=== PATIENT | male | born 1950 | race Caucasian/White ===

== ENCOUNTER 2016-05-07 09:08 | Inpatient (IN) | payer OTHER ==
[2016-05-07 09:31] VITALS: BMI 21.2
[2016-05-07] MEDS ORDERED: OXYCODONE/APAP 5/325MG COMBO TABLET PO ONE (12:07)
[2016-05-07] MEDS ORDERED: OXYCODONE/APAP 5/325MG COMBO TABLET ONE (12:15)
--- NOTE | 2016-05-07 12:17 | PDOC ---
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 Patient reports weakness in both of his lower extremities and back pain localized to the mid lower back radiating to his lower extremities. He reports radiation of pain to his lower extremities. Patient notes that he has bilateral nerve damage in his lower extremities and has difficulty walking up the stairs. Patient states that he has had 15 recent falls because he cannot walk up 19 stairs to his house and is sleeping outside and states I cant go back because I will out there. He also reports neck pain that was 1 month ago. Patient notes that he has been to multiple hospitals [facility] with similar complaints. He notes that he was in [place] for rehab in 01/2016 for rehab because of difficulty walking and states that he was discharged after full recovery after 1 month. He denies fever, chills, nausea, vomiting, diarrhea, headache, abdominal pain, hematochezia, urinary frequency, hesitancy, dysuria, or hematuria. <Jasmin Arndt - Last Filed: 05/07/16 15:08> - General Chief Complaint: Pain Stated Complaint: LEGS PAIN Time Seen by Provider: 05/07/16 11:29 Past History - Past Medical History COPD: Yes HTN: Yes - Psycho/Social/Smoking Cessation Hx Suicidal Ideation: No Smoking History: Current every day smoker Have you smoked in the past 12 months: Yes Number of Cigarettes Smoked Daily: 10 Information on smoking cessation initiated: No <Brent Simon - Last Filed: 05/07/16 14:57> <Jasmin Arndt - Last Filed: 05/07/16 15:08> - Past Medical History Allergies/Adverse Reactions: Allergies Allergy/AdvReac Type Severity Reaction Status Date / Time Penicillins Allergy Rash Verified 05/07/16 09:26 Home Medications: Ambulatory Orders NK [No Known Home Medication] 05/07/16 Review of Systems - Review of Systems Able to Perform ROS?: Yes Comments:: 05/07/16 15:07 CONSTITUTIONAL: Reported: Generalized Weakness. Not reported: Fever, Chills, Diaphoresis, Malaise, Loss of Appetite HEENT: No reported: Rhinorrhea, Nasal Congestion, Throat Pain, Throat Swelling, Difficulty Swallowing, Mouth Swelling, Ear Pain, Eye Pain, Visual Changes CARDIOVASCULAR: No reported: Chest Pain, Syncope, Palpitations, Irregular Heart Rate, Lightheadedness, Peripheral Edema RESPIRATORY: No reported: Cough, Shortness of Breath, SOB with Exertion, Orthopnea, Wheezing , Stridor, Hemoptysis GASTROINTESTINAL: No reported: Abdominal pain, Abdominal Distension, Nausea, Vomiting, Diarrhea, Constipation, Melena, Hematochezia GENITOURINARY: Reported: dysuria No reported:Frequency, Urgency, Hesitancy, Flank Pain, Genital Pain MUSCULOSKELETAL: Reported: back pain, lower extremity weakness. No reported: Myalgia, Arthralgia, Joint Swelling, Neck Pain SKIN: No reported: Rash, Itching, Pallor HEMEATOLOGIC/IMMUNOLOGIC: No reported: Easy Bleeding, Easy Bruising, Lymphadenopathy, Frequent infections ENDOCRINE: No reported: Unexplained Weight Gain, Unexplained Weight Loss, Heat Intolerance , Cold Intolerance NEUROLOGIC: No reported: Headache, Focal Weakness, Paresthesias, Vertigo, Lightheadedness, Unsteady Gait, Seizure, Mental Status Changes, Incontinence PSYCHIATRIC: No reported: Anxiety, Depression <Jasmin Arndt - Last Filed: 05/07/16 15:08> *Physical Exam - Vital Signs Last Vital Signs Temp Pulse Resp BP Pulse Ox 98.6 F 91 H 19 158/94 97 05/07/16 09:26 05/07/16 09:26 05/07/16 09:26 05/07/16 09:26 05/07/16 09:26 <Brent Simon - Last Filed: 05/07/16 14:57> - Vital Signs Last Vital Signs Temp Pulse Resp BP Pulse Ox 98.6 F 91 H 19 158/94 99 05/07/16 09:26 05/07/16 09:26 05/07/16 09:26 05/07/16 09:26 05/07/16 11:30 - Physical Exam Comments: 05/07/16 15:07 GENERAL: The patient is awake, alert, and fully oriented, Nontoxic - in no acute distress. HEAD: Normocephalic, atraumatic. EYES: extraocular movements intact, sclera anicteric, conjunctiva clear. ENT: Normal voice, Moist mucous membranes. NECK: Normal range of motion, supple LUNGS: Breath sounds equal, clear to auscultation bilaterally. No wheezes, no rhonchi, no rales. HEART: Regular rate and rhythm, without murmur, rub or gallop. ABDOMEN: Soft, nontender, normoactive bowel sounds. No guarding, no rebound.No CVA tenderness EXTREMITIES: Normal range of motion, no edema. No clubbing or cyanosis. No cords , erythema, or tenderness. NEUROLOGICAL: No facial assymetry, Normal speech, 5-/5 in LLE, foot drop in L foot, BACK: mild tenderness to lumbar spine ~L5/6, no focal tenderness in cervical/ thoracic spine PSYCH: Normal mood, normal affect. SKIN: Warm, Dry, normal turgor <Jasmin Arndt - Last Filed: 05/07/16 15:08> ED Treatment Course - LABORATORY CBC & Chemistry Diagram: 05/07/16 12:10 05/07/16 12:10 - RADIOLOGY Radiology Studies Ordered: Category Date Time Status CERVICAL SPINE CT W/O CONTR [CT] Stat CT Scan 05/07/16 12:[address] W/O CONTRAST [CT] Stat CT Scan 05/07/16 12:06 Ordered <Brent Simon - Last Filed: 05/07/16 14:57> - LABORATORY CBC & Chemistry Diagram: 05/07/16 12:10 05/07/16 12:10 - ADDITIONAL ORDERS Additional order review: Laboratory Results 05/07/16 05/07/16 12:10 12:10 INR 1.08 Sodium 142 Potassium 3.6 Chloride 107 Carbon Dioxide 25 Anion Gap 10 BUN 18 Creatinine 0.7 Creat Clearance w eGFR > 60 Random Glucose 125 H Calcium 9.2 Total Bilirubin 0.3 AST 23 ALT 18 Alkaline Phosphatase 93 Total Protein 7.4 Albumin 3.9 05/07/16 12:10 RBC 4.84 MCV 88.8 MCHC 33.2 RDW 14.2 MPV 7.3 L Neutrophils % 59.9 Lymphocytes % 30.3 Monocytes % 6.1 Eosinophils % 2.7 Basophils % 1.0 - Medications Given in the ED: ED Medications Discontinued Medications Generic Name Dose Route Start Last Admin Trade Name Freq PRN Reason Stop Dose Admin Oxycodone/Acetaminophen 2 combo 05/07/16 12:07 05/07/16 12:23 Percocet 5/325 - PO 05/07/16 12:08 2 combo ONCE ONE Administration <Jasmin Arndt - Last Filed: 05/07/16 15:08> Medical Decision Making - Medical Decision Making 05/07/16 12:08 66y M hx of htn, chronic back pain with 'nerve damage', copd, presents with back pain with radiationg down b/l legs, worsening weakness of LLE, radiation to R leg is new. The pt states he has unsteady gait is difficult to walk around due to his pain. The patient states that had a recent hospitalization at [place], where he was admitted for rehab, and he left feeling beter and walking around. He was last in [facility] last week and was discharged after 3 day hosptial stay, but since being at home, states he has been unable to get up to his apartment which requires a 19 step walk due to his back pain. Pt was seen falling when trying to ambulate in [facility] will ck ct neck and cspine to see if there is any acute pathology. will also consult social work 05/07/16 13:[address] neck and lspine negative for acute disease labs unremarkable will consult SW 05/07/16 14:[address] neck/lspine shows no nerve impingment dscussed with Lakshmi from - would recommend PT evaluation tomorrow may need CINTIA placement will place in observation status to hospitalist A portion of this note was documented by scribe services under my direction. I have reviewed the details of the note, within reason, and agree with the documentation with the following case summary and management plan written by me 05/07/16 14:57 case dw [employer] Azul accepted for med surg observatio for pain mangaement and PT evaluation. stable for med surg Case discussed in detail with admitting physician including history, physical exam and ancillary studies. Admitting physician has assumed care for the patient, will follow all pending diagnostics and will complete the evaluation and treatment. <Brent Simon - Last Filed: 05/07/16 14:57> *DC/Admit/Observation/Transfer - Discharge Dispostion Admit: Yes <Brent Simon - Last Filed: 05/07/16 14:57> - Attestations Scribe Attestion: 05/07/16 15:07 Documentation prepared by MICHA Blandon, acting as medical device sales representative for Brent Simon MD. <Jasmin Arndt - Last Filed: 05/07/16 15:08> Diagnosis at time of Disposition: Back pain Qualifiers: Back pain location: low back pain Chronicity: chronic Back pain laterality: bilateral Sciatica presence: with sciatica Sciatica laterality: bilateral sciatica Qualified Code(s): M54.42 - Lumbago with sciatica, left side
[2016-05-07 12:24] LABS: EOSINOPHIL 2.7 % (0-4.5); MCH 29.5 pg (25.7-33.7); MCHC 33.2 g/dl (32.0-35.9); MEAN CELL VOLUME 88.8 fl (80-96); MEAN PLT VOLUME 7.3 fl (7.5-11.1); NEUTROPHILS 59.9 % (42.8-82.8); PLATELET COUNT 227 K/MM3 (134-434); RDW 14.2 % (11.9-15.9); WHITE BLOOD COUNT 10.1 K/mm3 (4.0-10.0)
[2016-05-07 12:41] LABS: INR 1.08 (0.82-1.09); PROTHROMBIN TIME (PATIENT) 11.9 SEC (9.98-11.88)
[2016-05-07 12:49] LABS: ALBUMIN 3.9 g/dl (3.4-5.0); ALK PHOS 93 U/L (45-117); ANION GAP 10 (8-16); BILIRUBIN,TOTAL 0.3 mg/dL (0.2-1.0); CALCIUM 9.2 mg/dL (8.5-10.1); CO2 25 mmol/L (21-32); CREATININE 0.7 mg/dL (0.7-1.3); GLUCOSE,RANDOM 125 mg/dL (74-106); SGPT/ALT 18 U/L (12-78); TOT PROT 7.4 g/dl (6.4-8.2)
[2016-05-07 12:51] LABS: SGOT/AST 23 U/L (15-37)
--- NOTE | 2016-05-07 16:12 | HP ---
CHIEF COMPLAINT: back pain PCP: none HISTORY OF PRESENT ILLNESS: 66 year old male with a PMHx of chronic back pain, Hx of ETOH abuse (gathered from previous record), htn, presents to the emergency room due to c/o sharp low back pain with tingling that radiates down both of his legs. Patient has a history of low back pain s/p lower lumbar surgery in the . He has been to multiple hospitals throughout the past month, wanting admission to get placement into an assisted living facility. He claims that his pain has gotten progressively worse. Initially pain only radiated down right leg, now down the left leg. He is now unsteady and has been falling. He is unable to climb 19 steps going into his apartment. Claims he is unable to lift his right foot. Patient denies fever, chills, n, v Patient denies chest pain, sob, palpitations Patient denies recent trauma from falls ER course was notable for: (1)cbc, cmp unremarkable except for white count of 10.1 (2)neck CT and C spine were negative for acute pathology (3)aids social worker consulted, [place] Recent Travel: no PAST MEDICAL HISTORY: HTN, chronic low back pain, possible substance abuse in the past PAST SURGICAL HISTORY: lumbar fusion surgery Social History: Smoking: current tobacco smoker 10 cigarettes per day Alcohol:no Drugs: no Family History:n/a Allergies Penicillins Allergy (Verified 05/07/16 09:26) Rash HOME MEDICATIONS: Home Medications Medication Instructions Recorded NK [No Known Home Medication] 05/07/16 REVIEW OF SYSTEMS CONSTITUTIONAL: Absent: fever, chills, diaphoresis, generalized weakness, malaise, loss of appetite, weight change HEENT: Absent: rhinorrhea, nasal congestion, throat pain, throat swelling, difficulty swallowing, mouth swelling, ear pain, eye pain, visual changes CARDIOVASCULAR: Absent: chest pain, syncope, palpitations, irregular heart rate, lightheadedness , peripheral edema RESPIRATORY: Absent: cough, shortness of breath, dyspnea with exertion, orthopnea, wheezing, stridor, hemoptysis GASTROINTESTINAL: Absent: abdominal pain, abdominal distension, nausea, vomiting, diarrhea, constipation, melena, hematochezia GENITOURINARY: Absent: dysuria, frequency, urgency, hesitancy, hematuria, flank pain, genital pain MUSCULOSKELETAL: Positive: low back pain, Absent: myalgia, arthralgia, joint swelling, neck pain SKIN: Absent: rash, itching, pallor HEMATOLOGIC/IMMUNOLOGIC: Absent: easy bleeding, easy bruising, lymphadenopathy, frequent infections ENDOCRINE: Absent: unexplained weight gain, unexplained weight loss, heat intolerance, cold intolerance NEUROLOGIC: Positive: focal weakness or paresthesias, unsteady gait, Absent: headache, , dizziness, , seizure, mental status changes, bladder or bowel incontinence PSYCHIATRIC: Absent: anxiety, depression, suicidal or homicidal ideation, hallucinations. PHYSICAL EXAMINATION Vital Signs - 24 hr 05/07/16 05/07/16 09:26 11:30 Temperature 98.6 F Pulse Rate 91 H Respiratory 19 Rate Blood Pressure 158/94 O2 Sat by Pulse 97 99 Oximetry (%) GENERAL: Not well kept, Awake, alert, and fully oriented, in no acute distress. HEAD: Normal with no signs of trauma. EYES: Pupils equal, round and reactive to light, extraocular movements intact, sclera anicteric, conjunctiva clear. No lid lag. EARS, NOSE, THROAT: Ears normal, nares patent, oropharynx clear without exudates. Moist mucous membranes. NECK: Normal range of motion, supple without lymphadenopathy, JVD, or masses. LUNGS: Breath sounds equal, clear to auscultation bilaterally. No wheezes, and no crackles. No accessory muscle use. HEART: Regular rate and rhythm, normal S1 and S2 without murmur, rub or gallop. ABDOMEN: Soft, nontender, not distended, normoactive bowel sounds, no guarding, no rebound, no masses. No hepatomegaly or splenomegaly. MUSCULOSKELETAL: No bony deformities, lumbar spine tenderness. No CVA tenderness. UPPER EXTREMITIES: 2+ pulses, warm, well-perfused. No cyanosis. No clubbing. Cap refill <2 seconds. No peripheral edema. LOWER EXTREMITIES: ROM limited,right leg unable to lift; 2+ pulses, warm, well- perfused. No calf tenderness. No peripheral edema. NEUROLOGICAL: normal speech, facial symmetry, strength of right leg 3/5; only able to wiggle toes; l foot drop PSYCHIATRIC: Cooperative. Good eye contact. Appropriate mood and affect. SKIN: Warm, dry, normal turgor, no rashes or lesions noted. Laboratory Results - last 24 hr 05/07/16 05/07/16 05/07/16 12:10 12:10 12:10 WBC 10.1 H RBC 4.84 Hgb 14.3 Hct 43.0 MCV 88.8 MCHC 33.2 RDW 14.2 Plt Count 227 MPV 7.3 L Neutrophils % 59.9 Lymphocytes % 30.3 Monocytes % 6.1 Eosinophils % 2.7 Basophils % 1.0 INR 1.08 Sodium 142 Potassium 3.6 Chloride 107 Carbon Dioxide 25 Anion Gap 10 BUN 18 Creatinine 0.7 Creat Clearance w eGFR > 60 Random Glucose 125 H Calcium 9.2 Total Bilirubin 0.3 AST 23 ALT 18 Alkaline Phosphatase 93 Total Protein 7.4 Albumin 3.9 ASSESSMENT/PLAN: 66 yo male with PMHx of chronic back pain, presents to ER with worsening back pain with radiation down b/l legs, unsteady gait. Increase falls. Admitted to observation. Issue is safe discharge, patient may need rehab due to frequency of falls. 1. Low back pain -imaging with CT cervical and lumbar spine are negative for acute fracture or pathology, no nerve impingement. -pain control with percocet q4h prn -uncertain if patient may have had abuse problem in past; old records were positive for opiates and benzo in urine tox (>ten yrs ago ) 2. Unable to ambulate -Physical therapy assessment -aids social worker consulted; -questionable need for rehab placement 3. Leukocytosis: -NO signs of acute infection -could be elevated due to stress from pain -UA negative, no fever, chills, cough, diarrhea 4. Hypertension: -not on any medication at home -low na diet -monitor FEN: Fluids: oral Electrolyte:wnl Diet: low sodium VTE prophylaxis: scds b/l Disposition: await physical therapy recommendations Problem List - Problem (1) Back pain Code(s): M54.9 - DORSALGIA, UNSPECIFIED Qualifiers: Back pain location: low back pain Chronicity: chronic Back pain laterality: bilateral Sciatica presence: with sciatica Sciatica laterality: bilateral sciatica Qualified Code(s): M54.42 - Lumbago with sciatica, left side (2) Unsteady gait Code(s): R26.81 - UNSTEADINESS ON FEET (3) Hypertension Code(s): I10 - ESSENTIAL (PRIMARY) HYPERTENSION (4) Leukocytosis, unspecified Code(s): D72.829 - ELEVATED WHITE BLOOD CELL COUNT, UNSPECIFIED Visit type - Emergency Visit Emergency Visit: Yes Care time: The patient presented to the Emergency Department on the above date and was hospitalized for further evaluation of their emergent condition. - New Patient This patient is new to me today: Yes Date on this admission: 05/07/16 - Critical Care Critical Care patient: No
[2016-05-07] MEDS ORDERED: OXYCODONE/APAP 5/325MG COMBO TABLET PO PRN (16:38)
[2016-05-07] MEDS ORDERED: ACETAMINOPHEN 325 MG TABLET (FP) PO PRN (16:42)
--- NOTE | 2016-05-07 17:04 | PN ---
Teaching Attending Note Name of Resident: Ivana Charlton ATTENDING PHYSICIAN STATEMENT I saw and evaluated the patient. I reviewed the resident's note and discussed the case with the resident. I agree with the resident's findings and plan as documented. SUBJECTIVE:c/o low back pain for several months. pain has continued to worsen to the point that pt is unable to ambulate due to the pain. he has been at multiple hospitals due to the same complaints but is discharged after a day with a few days of percocet which he takes until it runs out and then goes to another hospital. states he has some nerve pain in his feet for several years. also has [facility] and back fusion "many years ago" after falling off a dumpster. denies CP, SOB,fever, chills, N/V/C/D, bladder/bowel incontinence. denies drug use OBJECTIVE: Last Vital Signs Temp Pulse Resp BP Pulse Ox 98.6 F 62 16 122/60 98 05/07/16 16:33 05/07/16 16:33 05/07/16 16:33 05/07/16 16:33 05/07/16 16:33 General NAD, thin, older than stated age, disheveled CV S1 S2 RRR no murmur/rub/gallop Extremities no bone point or muscular tenderness, strength LLE 1/5 RLE 2/5 B/L UE 5/5. only able to lift the RLE 5 degrees with passive motion LLE 15degrees. pulses intact B/L ASSESSMENT AND PLAN: 66yo M with PMH HTN and chronic back pain presented to the ER and was admitted for further evaluation of their emergent condition 1. Intractable back pain- medicine observation. will admit for PT assessment which we can not due do today as we dont have PT services. will cont percocet prn pain. PT assessment tomorrow. decision will be made tomorrow regarding what pt is capable of doing with PT. will consider ortho assessment as outpatient 2. HTN- controlled here off medications 3. leukocytosis-likely reactive due to pain. no signs of infection will hold off abx at this time 4. DVT ppx- EAM
[2016-05-07] MEDS ORDERED: oxyCODONE HCL 5 MG TABLET ONE (17:57)
[2016-05-07] MEDS: oxyCODONE HCL 5 MG TABLET PO PRN ×2 (18:01→23:18)
[2016-05-07] MEDS ORDERED: HEPARIN NA (PORCINE) 5,000 UNITS/ML 1ML VIAL SQ SCH (22:00)
[2016-05-07] MEDS: ACETAMINOPHEN 325 MG TABLET (FP) PO PRN (23:22)
[2016-05-08] MEDS: oxyCODONE HCL 5 MG TABLET PO PRN ×5 (03:59→23:04)
[2016-05-08] MEDS: ACETAMINOPHEN 325 MG TABLET (FP) PO PRN ×4 (04:04→16:57)
[2016-05-08 07:56] LABS: BASOPHIL 1.2 % (0-2.0); EOSINOPHIL 5.2 % (0-4.5); MCH 29.5 pg (25.7-33.7); MCHC 33.3 g/dl (32.0-35.9); MEAN CELL VOLUME 88.6 fl (80-96); MEAN PLT VOLUME 7.6 fl (7.5-11.1); NEUTROPHILS 40.3 % (42.8-82.8); PLATELET COUNT 218 K/MM3 (134-434); RDW 13.9 % (11.9-15.9); WHITE BLOOD COUNT 6.4 K/mm3 (4.0-10.0)
[2016-05-08 08:14] LABS: CALCIUM 9.5 mg/dL (8.5-10.1); CREATININE 0.6 mg/dL (0.7-1.3)
[2016-05-08] MEDS: POLYETHYLENE GLYCOL 3350 119 GM BTL PO SCH (11:32)
--- NOTE | 2016-05-08 14:40 | PN ---
Teaching Attending Note Name of Resident: Ivana Charlton ATTENDING PHYSICIAN STATEMENT I saw and evaluated the patient. I reviewed the resident's note and discussed the case with the resident. I agree with the resident's findings and plan as documented. SUBJECTIVE:continues to have significant pain, some alleviation with pain medications but unable to move or participate with PT due to pain. states his pain is mostly in the hips when he attempts to stand. denies Cp, SOb,fever, chills, N/V/C/D OBJECTIVE: Last Vital Signs Temp Pulse Resp BP Pulse Ox 98.5 F 59 L 18 113/52 96 05/08/16 05:00 05/08/16 05:00 05/08/16 05:00 05/08/16 05:00 05/08/16 05:00 General NAD, thin, older than stated age CV S1 S2 RRR no murmur/rub/gallop Extremities strength 2/5 B/L LE, ASSESSMENT AND PLAN: 66yo M with PMH HTN and chronic back pain presented to the ER and was admitted for further evaluation of their emergent condition 1. Intractable back pain- obtain XR of the hips. obtain medical records from other facilities. minimal improvement with pain regimen and unable to even stand at this time. will switch to morphine 2mg Q4H and continue with PT assessment. will consider ortho assessment as outpatient. miralax to prevent constipation 2. HTN- controlled here off medications, no need for meds at this time 3. leukocytosis-likely reactive due to pain. resolved. no signs of infection 4. DVT ppx- EAM 5. will possible require CINTIA
[2016-05-08] MEDS ORDERED: morphine CARPU-JECT 2 MG/1 ML DISP.SYRIN IVPUSH PRN (14:53)
--- NOTE | 2016-05-08 15:07 | PN ---
<Ivana Charlton - Last Filed: 05/08/16 14:59> Physical Exam: SUBJECTIVE: Patient seen and examined pain is relatively controlled with percocet while at rest. Persistent difficulty with weight bearing or any movement. Physical therapy evaluated patient, unable to stand. Patient denies fever, chills, n,v, chest pain, sob, abdominal pain, leg swelling. OBJECTIVE: Vital Signs Period Temp Pulse Resp BP Sys/Davis Pulse Ox Last 24 Hr 98.0 F-98.5 F 59-64 16-18 113-132/50-68 95-100 GENERAL: The patient is unkept, awake, alert, and fully oriented, in no acute distress. HEAD: Normal with no signs of trauma. EYES: PERRL, extraocular movements intact, sclera anicteric, conjunctiva clear. No ptosis. ENT: Ears normal, nares patent, oropharynx clear without exudates, moist mucous membranes. NECK: Trachea midline, full range of motion, supple. LUNGS: Breath sounds equal, scattered wheezes, no crackles, no accessory muscle use. HEART: Regular rate and rhythm, S1, S2 without murmur, rub or gallop. ABDOMEN: Soft, nontender, nondistended, normoactive bowel sounds, no guarding, no rebound, no hepatosplenomegaly, no masses. EXTREMITIES: 2+ pulses, warm, well-perfused, no edema.Very limited ROM b/l LE; cannot raise above 15 degrees; 2/5 strength b/l feet NEUROLOGICAL: Cranial nerves II through XII grossly intact. Normal speech, gait not observed. PSYCH: Normal mood, normal affect. SKIN: Warm, dry, normal turgor, no rashes or lesions noted CBC, BMP 05/08/16 06:15 05/08/16 06:15 Active Medications Generic Name Dose Route Start Last Admin Trade Name Freq PRN Reason Stop Dose Admin Acetaminophen 650 mg 05/07/16 15:51 05/08/16 12:48 Tylenol - PO 650 mg Q4H PRN Administration FEVER OR PAIN Heparin Sodium (Porcine) 5,000 unit 05/08/16 18:00 Heparin - SQ Q8H-IV DARRIAN Morphine Sulfate 2 mg 05/08/16 14:53 Morphine Injection - IVPUSH Q4H PRN PAIN Polyethylene Glycol 17 gm 05/08/16 10:00 05/08/16 11:32 Miralax (For Daily Use) - PO 17 gm DAILY DARRIAN Administration ASSESSMENT/PLAN: 66 yo male with PMHx of chronic back pain, presents to ER with worsening back pain with radiation down b/l legs, unsteady gait. Increase falls. Admitted to hospital for intractable pain. Patient may need rehab due to frequency of falls , evaluated by PT, unable to stand. 1. Low back pain -imaging with CT cervical and lumbar spine are negative for acute fracture or pathology, no nerve impingement. -pain control increased to morphine 2mg q4h prn 2. Unable to ambulate -Physical therapy assessment; patient unable to stand -social work nurse consulted; -b/l hip and pelvic x rays ordered today; pain in hips reproduced greatly with leg lifting 3. Leukocytosis: improved -NO signs of acute infection; most likey secondary to stress/pain -UA negative, no fever, chills, cough, diarrhea 4. Hypertension: stable -not on any medication at home -low na diet -monitor FEN: Fluids: oral Electrolyte:wnl Diet: low sodium VTE prophylaxis: heparin sq Disposition: continue physical therapy evaluation; change to inpatient ; control pain Problem List - Problems (1) Back pain Code(s): M54.9 - DORSALGIA, UNSPECIFIED Qualifiers: Back pain location: low back pain Chronicity: chronic Back pain laterality: bilateral Sciatica presence: with sciatica Sciatica laterality: bilateral sciatica Qualified Code(s): M54.42 - Lumbago with sciatica, left side (2) Unsteady gait Code(s): R26.81 - UNSTEADINESS ON FEET (3) Hypertension Code(s): I10 - ESSENTIAL (PRIMARY) HYPERTENSION (4) Leukocytosis, unspecified Code(s): D72.829 - ELEVATED WHITE BLOOD CELL COUNT, UNSPECIFIED Visit type - Emergency Visit Emergency Visit: Yes ED Registration Date: 05/07/16 Care time: The patient presented to the Emergency Department on the above date and was hospitalized for further evaluation of their emergent condition. - New Patient This patient is new to me today: Yes Date on this admission: 05/08/16 - Critical Care Critical Care patient: No - Discharge Referral Referred to [facility] No <Bj Abrams - Last Filed: 05/10/16 12:23> Physical Exam: ATTENDING PHYSICIAN STATEMENT I saw and evaluated the patient. I reviewed the resident's note and discussed the case with the resident. I agree with the resident's findings and plan as documented. SUBJECTIVE: seen and evaluated at the bedside OBJECTIVE: lower back tenderness; weakness of B/L lower extremities due to back pain ASSESSMENT AND PLAN: 66 year old male with a PMHx of chronic back pain, Hx of ETOH abuse (gathered from previous record), htn admitted for severe lower back pain Lower Back pain lower back tenderness; weakness of B/L lower extremities due to back pain -CT scan shows chronic L5 compression fracture -follow up with physical therapy to see if pt requires subacute rehab
[2016-05-08] MEDS: HEPARIN NA (PORCINE) 5,000 UNITS/ML 1ML VIAL SQ SCH (21:39)
[2016-05-09] MEDS: oxyCODONE HCL 5 MG TABLET PO PRN ×6 (03:17→23:31)
[2016-05-09] MEDS: HEPARIN NA (PORCINE) 5,000 UNITS/ML 1ML VIAL SQ SCH ×3 (05:58→21:54)
[2016-05-09 07:43] LABS: EOSINOPHIL 4.2 % (0-4.5); MCH 29.3 pg (25.7-33.7); MCHC 33.4 g/dl (32.0-35.9); MEAN CELL VOLUME 87.6 fl (80-96); MEAN PLT VOLUME 7.6 fl (7.5-11.1); NEUTROPHILS 54.7 % (42.8-82.8); PLATELET COUNT 221 K/MM3 (134-434); RDW 14.2 % (11.9-15.9); WHITE BLOOD COUNT 7.9 K/mm3 (4.0-10.0)
[2016-05-09 08:35] LABS: ALBUMIN 3.8 g/dl (3.4-5.0); ANION GAP 10 (8-16); BILIRUBIN,TOTAL 0.5 mg/dL (0.2-1.0); CALCIUM 9.3 mg/dL (8.5-10.1); CO2 28 mmol/L (21-32); CREATININE 0.6 mg/dL (0.7-1.3); GLUCOSE,RANDOM 81 mg/dL (74-106); SGOT/AST 14 U/L (15-37); SGPT/ALT 19 U/L (12-78); TOT PROT 7.1 g/dl (6.4-8.2)
[2016-05-09 08:36] LABS: ALK PHOS 88 U/L (45-117)
[2016-05-09] MEDS: POLYETHYLENE GLYCOL 3350 119 GM BTL PO SCH (09:32)
--- NOTE | 2016-05-09 11:22 | PN ---
<Ivana Charlton - Last Filed: 05/09/16 11:40> Physical Exam: SUBJECTIVE: Patient seen and examined. Admits to better pain control today. Morphine was added to his pain regimen OBJECTIVE: Vital Signs Period Temp Pulse Resp BP Sys/Davis Pulse Ox Last 24 Hr 98.2 F-99 F 57-72 16-18 106-138/53-72 95-95 GENERAL: The patient is unkept,awake, alert, and fully oriented, in no acute distress. HEAD: Normal with no signs of trauma. EYES: PERRL, extraocular movements intact, sclera anicteric, conjunctiva clear. No ptosis. ENT: Ears normal, nares patent, oropharynx clear without exudates, moist mucous membranes. NECK: Trachea midline, full range of motion, supple. LUNGS: Breath sounds equal, scattered expiratory wheezes, no crackles, no accessory muscle use. HEART: Regular rate and rhythm, S1, S2 mild systolic murmur, rub or gallop. ABDOMEN: Soft, nontender, nondistended, normoactive bowel sounds, no guarding, no rebound, no hepatosplenomegaly, no masses. EXTREMITIES: 2+ pulses, warm, well-perfused, no edema. Decreased ROM b/l LE; 2/ 5 strength b/l LE; sensation intact NEUROLOGICAL: Cranial nerves II through XII grossly intact. Normal speech, gait not observed. PSYCH: Normal mood, normal affect. SKIN: Warm, dry, normal turgor, no rashes or lesions noted CBC, BMP 05/09/16 07:05 05/09/16 07:05 Active Medications Generic Name Dose Route Start Last Admin Trade Name Eleuterioq PRN Reason Stop Dose Admin Acetaminophen 650 mg 05/07/16 15:51 05/08/16 16:57 Tylenol - PO 650 mg Q4H PRN Administration FEVER OR PAIN Heparin Sodium (Porcine) 5,000 unit 05/08/16 22:00 05/09/16 05:58 Heparin - SQ Not Given TID D[facility]AN Morphine Sulfate 2 mg 05/08/16 14:53 05/08/16 15:54 Morphine Injection - IVPUSH 2 mg Q4H PRN Administration PAIN Oxycodone HCl 10 mg 05/08/16 18:54 05/09/16 11:19 Roxicodone - PO 10 mg Q4H PRN Administration Polyethylene Glycol 17 gm 05/08/16 10:00 05/09/16 09:32 Miralax (For Daily Use) - PO Not Given DAILY [facility] ASSESSMENT/PLAN: 66 yo male with PMHx of chronic back pain, presents to ER with worsening back pain with radiation down b/l legs, unsteady gait. Increase falls. Admitted to hospital for intractable pain. Patient may need rehab due to frequency of falls , evaluated by PT, unable to stand. 1. Low back pain/Unable to ambulate -imaging with CT cervical and lumbar spine are negative for acute fracture or pathology, no nerve impingement. -pain control increased to morphine 2mg q4h prn and oxycodonone 10mg po a4h prn -pain has greatly improved with pain medication, able to get OOB to chair. -b/l hip and pelvic x rays negative for bony abnormalities, no evidence of hip dislocation, no trabecular pattern, femoral head intact -Pending PT evaluation today. -Patient may need rehab 2. Leukocytosis: resolved -NO signs of acute infection; most likey secondary to stress/pain -UA negative, no fever, chills, cough, diarrhea 4. Hypertension: stable -not on any medication at home -low na diet -monitor FEN: Fluids: oral Electrolyte:wnl Diet: low sodium VTE prophylaxis: heparin sq Disposition: continue physical therapy evaluation; change to inpatient ; control pain Problem List - Problems (1) Back pain Code(s): M54.9 - DORSALGIA, UNSPECIFIED Qualifiers: Back pain location: low back pain Chronicity: chronic Back pain laterality: bilateral Sciatica presence: with sciatica Sciatica laterality: bilateral sciatica Qualified Code(s): M54.42 - Lumbago with sciatica, left side (2) Unsteady gait Code(s): R26.81 - UNSTEADINESS ON FEET (3) Hypertension Code(s): I10 - ESSENTIAL (PRIMARY) HYPERTENSION (4) Leukocytosis, unspecified Code(s): D72.829 - ELEVATED WHITE BLOOD CELL COUNT, UNSPECIFIED Visit type - Emergency Visit Emergency Visit: Yes ED Registration Date: 05/08/16 Care time: The patient presented to the Emergency Department on the above date and was hospitalized for further evaluation of their emergent condition. - New Patient This patient is new to me today: No - Critical Care Critical Care patient: No - Discharge Referral Referred to [facility] Med P.C.: No <Bj Abrams - Last Filed: 05/10/16 12:24> Physical Exam: ATTENDING PHYSICIAN STATEMENT I saw and evaluated the patient. I reviewed the resident's note and discussed the case with the resident. I agree with the resident's findings and plan as documented. SUBJECTIVE: seen and evaluated at the bedside OBJECTIVE: lower back tenderness; weakness of B/L lower extremities due to back pain ASSESSMENT AND PLAN: 66 year old male with a PMHx of chronic back pain, Hx of ETOH abuse (gathered from previous record), htn admitted for severe lower back pain Lower Back pain lower back tenderness; weakness of B/L lower extremities due to back pain -CT scan shows chronic L5 compression fracture -has no more coverage for short term rehab remaining -physical therapy BID until pt is able to go home with VNS -follow up pain management consult
[2016-05-10] MEDS: oxyCODONE HCL 5 MG TABLET PO PRN ×6 (03:34→23:59)
[2016-05-10] MEDS: HEPARIN NA (PORCINE) 5,000 UNITS/ML 1ML VIAL SQ SCH ×3 (06:29→21:48)
[2016-05-10 07:29] LABS: BASOPHIL 0.9 % (0-2.0); EOSINOPHIL 4.7 % (0-4.5); MCH 29.3 pg (25.7-33.7); MCHC 33.4 g/dl (32.0-35.9); MEAN CELL VOLUME 87.8 fl (80-96); MEAN PLT VOLUME 7.3 fl (7.5-11.1); NEUTROPHILS 51.9 % (42.8-82.8); PLATELET COUNT 222 K/MM3 (134-434); RDW 13.9 % (11.9-15.9); WHITE BLOOD COUNT 7.8 K/mm3 (4.0-10.0)
[2016-05-10 08:37] LABS: ALBUMIN 3.9 g/dl (3.4-5.0); ANION GAP 9 (8-16); BILIRUBIN,TOTAL 0.4 mg/dL (0.2-1.0); CALCIUM 9.3 mg/dL (8.5-10.1); CO2 29 mmol/L (21-32); CREATININE 0.7 mg/dL (0.7-1.3); GLUCOSE,RANDOM 88 mg/dL (74-106); SGOT/AST 19 U/L (15-37); SGPT/ALT 21 U/L (12-78); TOT PROT 7.3 g/dl (6.4-8.2)
[2016-05-10 08:38] LABS: ALK PHOS 81 U/L (45-117)
[2016-05-10] MEDS: POLYETHYLENE GLYCOL 3350 119 GM BTL PO SCH (11:39)
--- NOTE | 2016-05-10 14:59 | PN ---
<Ivana Charlton - Last Filed: 05/10/16 15:01> Physical Exam: SUBJECTIVE: Patient seen and examined. Sitting up in bed today. Still complaining of pain but claims it is tolerable with medication. Nurse states that he walked to the bathroom with his walker. He is worried today about getting kicked out of apartment due to past due rent. Patient denies fever, chills, n, v, chest pain, sob, palpitations, abdominal pain. HE said that he has moved his bowels a little bit. He also has been refusing the mirolax. OBJECTIVE: Vital Signs Period Temp Pulse Resp BP Sys/Davis Pulse Ox Last 24 Hr 98.3 F-98.5 F 63-76 20-20 110-150/53-84 95-97 GENERAL: The patient is awake, alert, and fully oriented, in no acute distress. HEAD: Normal with no signs of trauma. EYES: PERRL, extraocular movements intact, sclera anicteric, conjunctiva clear. No ptosis. LUNGS: Breath sounds equal, clear to auscultation bilaterally, no wheezes, no crackles, no accessory muscle use. HEART: Regular rate and rhythm, S1, S2 without murmur today,. ABDOMEN: Soft, nontender, nondistended, normoactive bowel sounds, no guarding, no rebound, no hepatosplenomegaly, no masses. EXTREMITIES: 2+ pulses, warm, well-perfused, no edema. Pain with hip flexion and extension. strength 2/5 b/l LE NEUROLOGICAL: Cranial nerves II through XII grossly intact. Normal speech, gait not observed. PSYCH: Normal mood, normal affect. SKIN: Warm, dry, normal turgor, no rashes or lesions noted CBC, BMP 05/10/16 06:10 05/10/16 06:10 Active Medications Generic Name Dose Route Start Last Admin Trade Name Freq PRN Reason Stop Dose Admin Acetaminophen 650 mg 05/07/16 15:51 05/08/16 16:57 Tylenol - PO 650 mg Q4H PRN Administration FEVER OR PAIN Heparin Sodium (Porcine) 5,000 unit 05/08/16 22:00 05/10/16 13:47 Heparin - SQ Not Given TID DARRIAN Morphine Sulfate 2 mg 05/08/16 14:53 05/08/16 15:54 Morphine Injection - IVPUSH 2 mg Q4H PRN Administration PAIN Oxycodone HCl 10 mg 05/08/16 18:54 05/10/16 11:39 Roxicodone - PO 10 mg Q4H PRN Administration Polyethylene Glycol 17 gm 05/08/16 10:00 05/10/16 11:39 Miralax (For Daily Use) - PO Not Given DAILY [facility] IMAGING : -CT cervical and lumbar spine are negative for acute fracture or pathology, no nerve impingement -B/L hip and pelvic x rays negative for bony abnormalities, no evidence of hip dislocation, no trabecular pattern, femoral head intact ASSESSMENT/PLAN: 66 yo male with PMHx of chronic back pain, presents to ER with worsening back pain with radiation down b/l legs, unsteady gait. Increase falls. Admitted to hospital for intractable pain. Patient may need rehab due to frequency of falls , evaluated by PT, unable to stand. 1. Low back pain/Unable to ambulate: slightly improving asking for pain control around the clock -pain control increased yesterday to morphine 2mg q4h prn and oxycodonone 10mg po a4h prn -pain has greatly improved with pain medication, able to get OOB to chair -Pending PT evaluation . -rehab 2. Leukocytosis: resolved -NO signs of acute infection; most likey secondary to stress/pain -UA negative, no fever, chills, cough, diarrhea 4. Hypertension: stable -not on any medication at home -low na diet -monitor FEN: Fluids: oral Electrolyte:wnl Diet: low sodium VTE prophylaxis: heparin sq Disposition: continue physical therapy : case management specialist says he does not have any SNF days left; he will have to be d/c/d home or to a retirement Problem List - Problems (1) Back pain Code(s): M54.9 - DORSALGIA, UNSPECIFIED Qualifiers: Back pain location: low back pain Chronicity: chronic Back pain laterality: bilateral Sciatica presence: with sciatica Sciatica laterality: bilateral sciatica Qualified Code(s): M54.42 - Lumbago with sciatica, left side (2) Unsteady gait Code(s): R26.81 - UNSTEADINESS ON FEET (3) Hypertension Code(s): I10 - ESSENTIAL (PRIMARY) HYPERTENSION (4) Leukocytosis, unspecified Code(s): D72.829 - ELEVATED WHITE BLOOD CELL COUNT, UNSPECIFIED Visit type - Emergency Visit Emergency Visit: Yes ED Registration Date: 05/08/16 Care time: The patient presented to the Emergency Department on the above date and was hospitalized for further evaluation of their emergent condition. - New Patient This patient is new to me today: No - Critical Care Critical Care patient: No - Discharge Referral Referred to [facility] Med P.C.: No <Bj Abrams - Last Filed: 05/11/16 19:01> Physical Exam: ATTENDING PHYSICIAN STATEMENT I saw and evaluated the patient. I reviewed the resident's note and discussed the case with the resident. I agree with the resident's findings and plan as documented. SUBJECTIVE: seen and evaluated at the bedside OBJECTIVE: lower back tenderness; weakness of B/L lower extremities due to back pain ASSESSMENT AND PLAN: 66 year old male with a PMHx of chronic back pain, Hx of ETOH abuse (gathered from previous record), htn admitted for severe lower back pain Lower Back pain lower back tenderness; weakness of B/L lower extremities due to back pain -CT scan shows chronic L5 compression fracture -has no more coverage for short term rehab remaining -physical therapy BID until pt is able to go home with VNS -follow up pain management consult
[2016-05-11] MEDS: oxyCODONE HCL 5 MG TABLET PO PRN ×4 (03:34→15:22)
[2016-05-11] MEDS: HEPARIN NA (PORCINE) 5,000 UNITS/ML 1ML VIAL SQ SCH ×2 (06:38→13:06)
--- NOTE | 2016-05-11 07:22 | CONSULT ---
Consult Consult Specialty:: back pain and hip pain Referred by:: hospitalist Reason for Consultation:: back and hip pain and chornic opioids - History of Present Illness Chief Complaint: back pain History of Present Illness: 66 year old man with a history of chronic back and hip pain. He has been on chronic opioids- oxycodone "helps me a lot". Pain score 9/10. He reports he cannot go up stairs and he has 19steps at home. - Smoking History Smoking history: Current every day smoker Have you smoked in the past 12 months: Yes Aproximately how many cigarettes per day: 10 Home Medications - Allergies Allergies/Adverse Reactions: Allergies Allergy/AdvReac Type Severity Reaction Status Date / Time Penicillins Allergy Rash Verified 05/07/16 09:26 - Home Medications Home Medications: Ambulatory Orders NK [No Known Home Medication] 05/07/16 Physical Exam Vital Signs: Vital Signs Temperature 98.8 F 05/11/16 06:00 Pulse Rate 69 05/11/16 06:00 Respiratory Rate 18 05/11/16 06:00 Blood Pressure 134/66 05/11/16 06:00 O2 Sat by Pulse Oximetry (%) 97 05/10/16 22:00 Musculoskeletal: Yes: Back Pain Labs: CBC, BMP 05/10/16 06:10 05/10/16 06:10 Assessment/Plan Chronic opioid use Chronic hip and back pain 1. SInce patient states was told he needed a hip replacement, please consider ortho eval 2. Patient reports going to multiple hospitals for oxycodone. I could not check ISTOP today since the computer did not allow me to check. I will check later in my office. FOr now, its ok to continue but I would not recommend more than 2-3 pills of oxycodone as an outpatient. 3. Physical therapy/Rehab
[2016-05-11] MEDS: POLYETHYLENE GLYCOL 3350 119 GM BTL PO SCH (10:51)
--- NOTE | 2016-05-11 14:00 | CON.PSY ---
Psychiatry Consult Chief Complaint: AM TOO CHICKEN TO KILL MYSELF. i WANT TO GO TO [facility] FOR MY PAIN MEDS.i DONT NEED A PSYCHIATRIST, i DONT WANT TO TALK TO YOU. i AM NOT GOING TO KILL MY SELF. i WAS JUST KIDDING. Symptoms: reports: Irritability, Conduct Problems - Previous Psychiatric Treatment Outpatient: None Inpatient: None - Previous Substance Abuse Treatment Outpatient: None Inpatient: None - Current Medications Current Medications: Active Medications Acetaminophen (Tylenol -) 650 mg PO Q4H PRN PRN Reason: FEVER OR PAIN Last Admin: 05/08/16 16:57 Dose: 650 mg Heparin Sodium (Porcine) (Heparin -) 5,000 unit SQ TID [facility] Last Admin: 05/11/16 13:06 Dose: Not Given Morphine Sulfate (Morphine Injection -) 2 mg IVPUSH Q4H PRN PRN Reason: PAIN Last Admin: 05/08/16 15:54 Dose: 2 mg Oxycodone HCl (Roxicodone -) 10 mg PO Q4H PRN Last Admin: 05/11/16 11:15 Dose: 10 mg Polyethylene Glycol (Miralax (For Daily Use) -) 17 gm PO DAILY [facility] Last Admin: 05/11/16 10:51 Dose: Not Given - Allergies Allergies: Allergies Allergy/AdvReac Type Severity Reaction Status Date / Time Penicillins Allergy Rash Verified 05/07/16 09:26 - Current Living Status Usual Living Arrangement: Alone - Current Mental Status Evaluation Appearance: Disheveled Attitude: Uncooperative - Affect Affect: Full Range Appropriateness: Appropriate to Content - Mood Mood: Angry, Irritable - Speech/Language Expressive: Coherent - Psychomotor Activity Psychomotor Activity: Hyperactive - Thought Process Thought Process: Intact - Thought Content Hallucinations: Absent Delusions: Absent - Self Perception Self Perception: No Impairment - Cognition Attention: Alert Orientation: Time Memory, Immediate Recall: Intact - Concentration Serial Sevens Intact: No Simple Calculations Intact: No - Abstraction Proverb Interpretation: Intact Judgement: Minimally Impaired - Impulse Control Impulse Control: Good Control - Suicidal Ideation Suicidal Ideation: No - Homicidal Ideation Homicidal Ideation: No Assessment/Plan Patient is not suicidal at this time.
[2016-05-11 15:23] VITALS: BP 135/93; PULSE 102; TEMP 99.3
--- NOTE | 2016-05-11 16:51 | DS ---
Physical Exam: SUBJECTIVE: Patient seen and examined at beside. Was able to get up and walk and walk ten steps with walker. He did bear maritza on both feet. Patinet still admits to back and leg pain, improves only with pain medication. OBJECTIVE: Vital Signs Period Temp Pulse Resp BP Sys/Davis Pulse Ox Last 24 Hr 98.6 F-99.3 F 60-102 18-18 115-135/51-93 97-97 PHYSICAL EXAM GENERAL: The patient is thin, unkept, agitated, awake, alert, and fully oriented , in no acute distress. HEAD: Normal with no signs of trauma. EYES: PERRL, extraocular movements intact, sclera anicteric, conjunctiva clear. ENT: Ears normal, nares patent, oropharynx clear without exudates, moist mucous membranes. NECK: Trachea midline, full range of motion, supple. LUNGS: Breath sounds equal, clear to auscultation bilaterally, no wheezes, no crackles, no accessory muscle use. HEART: Regular rate and rhythm, S1, S2 without murmur, rub or gallop. ABDOMEN: Soft, nontender, nondistended, normoactive bowel sounds, no guarding, no rebound, no hepatosplenomegaly, no masses. EXTREMITIES: 2+ pulses, warm, well-perfused, no edema. Pain with flexion and extension. Unabe to lift legs up b/l while laying on the bed NEUROLOGICAL: Cranial nerves II through XII grossly intact. Normal speech, gait was observed, patient dragged right foot when walking one way, switch and dragged left foot when he turned around to walk back to bed, while using walker. PSYCH: agitated. SKIN: Warm, dry, normal turgor, no rashes or lesions noted. LABS HOSPITAL COURSE: Date of Admission:05/08/16 Date of Discharge: 05/11/16 ASSESSMENT/PLAN: 66 yo male with PMHx of history of alcohol abuse, chronic back pain, hx back surgery (unknown), presented to ER with worsening back pain with radiation down b/l legs, unsteady gait. admits to increase falls. Admitted to hospital for intractable pain and inability to ambulate. Patient's pain has been controlled with percocet and morphine. Patient requesting pain medications around the clock. He is very agitated and demands medications. Imaging did not result in any acute pathology or fractures. Bilateral hip xray were negative for bony abnormalities, no evidence of hip dislocation, no trabecular pattern, femoral head intact. CT cervical and lumbar spine are negative for acute fracture or pathology, no nerve impingement. Positive for chronic compression fracture. Patient was seen by physical therapy, he was able to walk 15 steps with walker yesterday. Today nurse noted patient leaving his room, walked quickly to the elevator without a walker (>100feet). Patient told the nurse he was going out for a cigarette. Patient has been going to many hospitals around the area for pain medication. He also has used all of his insurance paid rehab days, according to the employment case manager. He was seen by pain management Dr. Terrence Valles, and was only recommended a limited amount of pain medication upon discharge. Patient was also sen by psychiatrist, Dr. Szymanski, due to suicidal ideation today. Patient was cleared by Dr. Szymanski, patient told him he was "just kidding ". We have prescribed patient with percocet 1tab q4h prn x 4 day. We have recommended to him to follow up with pain management and primary care. On admission, patient had an elevated leukocyte count, this was presumed secondary to pain. We did not have any other clinical signs of infection. White count improved and stabilized. Patient has been discharged to home. Minutes to complete discharge: 40 <Ivana Charlton - Last Filed: 05/11/16 17:02> Physical Exam: ATTENDING PHYSICIAN STATEMENT I saw and evaluated the patient. I reviewed the resident's note and discussed the case with the resident. I agree with the resident's findings and plan as documented. SUBJECTIVE: seen and evaluated at the bedside OBJECTIVE: lower back tenderness; weakness of B/L lower extremities due to back pain ASSESSMENT AND PLAN: 66 year old male with a PMHx of chronic back pain, Hx of ETOH abuse (gathered from previous record), htn admitted for severe lower back pain Lower Back pain -CT scan shows chronic L5 compression fracture -has no more coverage for short term rehab remaining -plan was for physical therapy BID until pt is able to go home with VNS but pt was observed by RN ambulating on his own to go outside of the hospital in the presence of security to smoke a cigarette indicating that pt was over stating his weakness and will be discharged home <Bj Abrams - Last Filed: 05/11/16 19:03> Discharge Summary Reason For Visit: BACK PAIN Current Active Problems Unsteady gait (Acute) Back pain (Chronic) Hypertension (Chronic) - Home Medications Comprehensive Discharge Medication List: Ambulatory Orders Acetaminophen [Tylenol .Regular Strength -] 650 mg PO Q4H PRN #0 tablet Neurontin 800 mg PO TID 05/11/16 Oxycodone HCl/Acetaminophen [Percocet 5-325 mg Tablet] 1 tab PO Q4H PRN #24 tablet MDD 4 05/11/16 <Ivana Charlton - Last Filed: 05/11/16 17:02> Current Active Problems Unsteady gait (Acute) Back pain (Chronic) Hypertension (Chronic) - Home Medications Comprehensive Discharge Medication List: Ambulatory Orders Acetaminophen [Tylenol .Regular Strength -] 650 mg PO Q4H PRN #0 tablet Neurontin 800 mg PO TID 05/11/16 Oxycodone HCl/Acetaminophen [Percocet 5-325 mg Tablet] 1 tab PO Q4H #2 tablet MDD 2 05/11/16 <Bj Abrams - Last Filed: 05/11/16 19:03> Condition: Improved - Instructions Diet, Activity, Other Instructions: Mr Boyle, you have been treated for your acute episode of back and leg pain. Your condition has greatly improved due to your ability to walk with and with out a walker. We understand that you experience chronic pain. We would like you to follow up with a painter interior finish. We will provide you a limited amount of percocet for now. If you experience any worsening of symptoms, inability to walk, please return to the ER. Referrals: Terrence Lozano MD [Staff Physician] - Disposition: HOME Problem List - Problems (1) Back pain Code(s): M54.9 - DORSALGIA, UNSPECIFIED Qualifiers: Back pain location: low back pain Chronicity: chronic Back pain laterality: bilateral Sciatica presence: with sciatica Sciatica laterality: bilateral sciatica Qualified Code(s): M54.42 - Lumbago with sciatica, left side (2) Unsteady gait Code(s): R26.81 - UNSTEADINESS ON FEET (3) Hypertension Code(s): I10 - ESSENTIAL (PRIMARY) HYPERTENSION (4) Leukocytosis, unspecified Code(s): D72.829 - ELEVATED WHITE BLOOD CELL COUNT, UNSPECIFIED <Ivana Charlton - Last Filed: 05/11/16 17:02> This patient is new to me today: No Emergency Visit: Yes ED Registration Date: 05/08/16 Care time: The patient presented to the Emergency Department on the above date and was hospitalized for further evaluation of their emergent condition. Critical Care patient: No - Discharge Referral Referred to [facility] Med P.C.: No <Ivana Charlton - Last Filed: 05/11/16 17:02>
== END 2016-05-11 17:21 | disposition home or self-care (01) | DRG 552 ==
LOC: JER 09:08 → JERBED 16:46 → J8W 21:02 → OBSVTOIN 05-08 14:57
PROVIDERS: ADMIT Internal Medicine; ATTEND Internal Medicine
DX: M54.42 Lumbago with sciatica, left side (principal); F11.20 Opioid dependence, uncomplicated; S32.058D Other fracture of fifth lumbar vertebra, subsequent encounter for fracture with routine healing; F10.10 Alcohol abuse, uncomplicated; I10 Essential (primary) hypertension; F17.210 Nicotine dependence, cigarettes, uncomplicated; R26.81 Unsteadiness on feet; D72.829 Elevated white blood cell count, unspecified; X58.XXXD Exposure to other specified factors, subsequent encounter
CPT/HCPCS: 36415; 72125-TC; 72131-TC; 73523-TC; 80048; 80053; 85025; 85610; 97116-GP; 97162-PG; 99285-25; G0378

== ENCOUNTER 2016-05-12 13:22 | Emergency (ER) | payer OTHER ==
[2016-05-12 13:28] VITALS: BP 146/86; PULSE 104; TEMP 99; BMI 21.2
--- NOTE | 2016-05-12 14:33 | PDOC ---
History of Present Illness - General Chief Complaint: Injury Stated Complaint: LT LEG PAIN Time Seen by Provider: 05/12/16 13:50 History Source: Patient Exam Limitations: No Limitations - History of Present Illness Initial Comments: 05/12/16 14:33 66y hx of ?neuropahty of LE, COPD, HTN presents s/p fall. The patient had recent hospitalization, was assessed by PT, was witnessed walking 15 feet, then 100+feet quickly, pt was also seen by pain mangement and pt was discharged home. The pt fell today - states that he was walking and fell in front of a [place], denies any LOC, but states he hit is head and 'saw stars'. Pt denies any neck pain, back pain. Pt complaining of pain in jennifer L forearm with an eccmyosis after a fall a few days ago. Pt endorses pain to bilaterally feet that is a tingling in sensation similar to his previous nerve pain. Pt notes very mild back pain but is not very severe and consistent with his previous back pain s/psurgury. pt states his pain is worse int he L hip. pt denies any cp, sob, numbness/tweakness, fever/chills. Past History - Past Medical History Allergies/Adverse Reactions: Allergies Allergy/AdvReac Type Severity Reaction Status Date / Time Penicillins Allergy Rash Verified 05/12/16 13:26 Home Medications: Ambulatory Orders Albuterol Sulfate Inhaler - [Ventolin Hfa Inhaler -] 2 inh PO Q4H 05/14/16 Budesonide/Formeterol Fumarate [SYMBICORT 80/4.5mcg -] 1 inh PO PRN PRN Gabapentin [Neurontin -] 400 mg PO Q8H 05/14/16 Oxycodone HCl/Acetaminophen [Percocet 5-325 mg Tablet] 2 tab PO Q6H 05/14/16 COPD: Yes HTN: Yes - Immunization History Immunization Up to Date: Yes - Psycho/Social/Smoking Cessation Hx Suicidal Ideation: No Smoking History: Current every day smoker Have you smoked in the past 12 months: Yes Number of Cigarettes Smoked Daily: 10 Information on smoking cessation initiated: No Hx Alcohol Use: No Drug/Substance Use Hx: No Review of Systems - Review of Systems Able to Perform ROS?: Yes Comments:: 05/12/16 14:46 Constitutional - no reported Fever, Chills, weakness, HEENT: no reported vision changes, sore throat Respiratory: no reported cough, sob, hemoptysis Cardiac: no reported chest pain, palpitations, light headedness, leg swelling Abd/GI: no reported abd pain, nausea, vomiting, blood per rectum, melena, diarrhea : no reported dysuria, frequency, discharge Musculskelatal - +tingling leg pain, +left hip pain, L forarm pain, mild back pain no reported joint swelling skin - no reported bruising, erythema, rash neurological: no reported headache, numbness, focal weakness, tingling, ataxia, weakness hematologic: no reported anemia, easy bruising, easy bleeding *Physical Exam - Vital Signs Last Vital Signs Temp Pulse Resp BP Pulse Ox 99.0 F 104 H 20 146/86 96 05/12/16 13:27 05/12/16 13:27 05/12/16 13:27 05/12/16 13:27 05/12/16 13:27 - Physical Exam Comments: 05/12/16 14:48 GENERAL: The patient is awake, alert, and fully oriented, Nontoxic - in no acute distress. HEAD: Normocephalic, small abrasion on his L forehead without crepitus, stepoffs , no laceration noted EYES: extraocular movements intact, sclera anicteric, conjunctiva clear. ENT: Normal voice, Moist mucous membranes. NECK: Normal range of motion, supple BACK: No midline tenderness in cervical, thoracic, lumbar spine. LUNGS: Breath sounds equal, clear to auscultation bilaterally. No wheezes, no rhonchi, no rales. HEART: Regular rate and rhythm, normal S1 and S2 without murmur, rub or gallop. ABDOMEN: Soft, nontender, normoactive bowel sounds. No guarding, no rebound. . No CVA tenderness EXTREMITIES: no focal tendenress noted on hips/knee/ankle/thigh/damico/feet nor obvious signs of trauma/ecchymosis. +pain when ranging his L hip, +L foot drop (documetned on prior exam) NEUROLOGICAL: No facial assymetry, Normal speech, moving all 4 extremities spontaneously and symmetrically PSYCH: Normal mood, normal affect. SKIN: Warm, Dry, normal turgor, ED Treatment Course - RADIOLOGY Radiology Studies Ordered: Category Date Time Status HEAD CT WITHOUT CONTRAST [CT] Stat CT Scan 05/12/16 14:29 Ordered FOREARM- LEFT [RAD] Stat Radiology 05/12/16 14:27 Ordered HIP & PELVIS-LEFT [RAD] Stat Radiology 05/12/16 14:27 Ordered Medical Decision Making - Medical Decision Making 05/12/16 14:49 will r/o acute trauma with ct head, xrays of hip and forearm. The patient claims he cannot walk - however the patient was seen ambulating without any difficulty prior to discharge this week. 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 suspect possible pain medication seeking behavior as the patient history seems inconsistent (when asked how he gets around he states he takes the bus/train and states he typically ambuolates to the bus/train station). 05/12/16 15:44 imaging reviewed negative and pt is ambulatory currently - threatening to leave since we are not giving him his percocet. based on note from prior pain management consult during admissio - recommended avoiding exterminator helper termite rx for narcotics. will dc the pt to fu with his pmd and pain management return precautions were discussed I discussed the physical exam findings, ancillary test results and final diagnoses with the patient. I answered all of the patient's questions. The patient was satisfied with the care received and felt comfortable with the discharge plan and treatment plan. The patient will call their primary care physician within 24 hours to arrange follow-up and will return to the Emergency Department with any new, persistent or worsening symptoms. *DC/Admit/Observation/Transfer Diagnosis at time of Disposition: Hip pain Qualifiers: Laterality: left Qualified Code(s): M25.552 - Pain in left hip Head injury Qualifiers: Encounter type: initial encounter Qualified Code(s): S09.90XA - Unspecified injury of head, initial encounter - Discharge Dispostion Disposition: HOME Condition at time of disposition: Improved Admit: No - Referrals Referrals: [facility] [Provider Group] - Patient Instructions Printed Discharge Instructions: DI for Closed Head Injury Additional Instructions: Return to the emergency department immediately with ANY new, persistent or worsening symptoms. Take tylenol as needed for pain You MUST call and follow up with your doctor tomorrow for further evaluation of your symptoms. Results were discussed with you. Please make sure your doctor reviews the results of your emergency evaluation. If you had any xrays during your visit, it was read preliminarily by myself, a Radiologist will review it and if there are any additional findings we will call you. Print Language: ARMENIAN
== END 2016-05-12 16:39 | disposition home or self-care (01) ==
LOC: JER 13:22
DX: S09.90XA Unspecified injury of head, initial encounter (principal); M25.552 Pain in left hip; W18.39XA Other fall on same level, initial encounter; Y93.9 Activity, unspecified; Y92.480 Sidewalk as the place of occurrence of the external cause; J44.9 Chronic obstructive pulmonary disease, unspecified; I10 Essential (primary) hypertension; F17.210 Nicotine dependence, cigarettes, uncomplicated
CPT/HCPCS: 70450-TC; 73090-TC-LT; 73523-TC; 99282-25

== ENCOUNTER 2016-05-14 15:06 | Inpatient (IN) | payer OTHER ==
[2016-05-14 15:37] VITALS: BMI 22.6
--- NOTE | 2016-05-14 16:00 | HP ---
COWS - Scale Resting Pulse: 1= NM 81-100 Sweatin=Flushed/Facial Moisture Restless Observation: 3= Extraneous Movement Pupil Size: 2= Moderately Dilated Bone or Joint Aches: 2= Severe Diffuse Aches Runny Nose/ Eye Tearin= Runny Nose/Eyes GI Upset > 30mins: 3= Vomiting/Diarrhea Tremor Observation: 2= Slight Tremor Visible Yawning Observation: 2= >3x During Session Anxiety or Irritability: 2=Irritable/Anxious Goose Flesh Skin: 0=Smooth Skin COWS Score: 21 Admission ROS [facility] - HPI Chief Complaint: I NEED HELP TO STOP USING DRUG PERCOCET Allergies/Adverse Reactions: Allergies Allergy/AdvReac Type Severity Reaction Status Date / Time Penicillins Allergy Rash Verified 05/14/16 15:30 History of Present Illness: THIS 66 YEARS OOD MALE WITH PERCOCET DEPENDENCE,WITHDRAWAL SYMPTOM,LAST DETOX [facility] 2006 ADMITTED FOR HEAD INJURY AFTER A FALL AT [facility] FROM 05/08/16 TO 05/11/[address] [facility] ER TODAY,CLEAR TO COME TO [facility] FOR INPATIENT DETOX FREQUENT FALLS HISTORY TORO PALSY LEFT AT AGE [age] YEARS OLD FX OF LEFT FEMUR IN 2006 FX OF BACK IN 1995 AMBULATION WITH CANE NO SIGNIFICANT PERIOD OF SOBRIETY - Ebola screening Have you traveled outside of the country in the last 21 days: No Have you had contact with anyone from an Ebola affected area: No Have you been sick,other than usual withdrawal symptoms: No Do you have a fever: No - Review of Systems Constitutional: Chills, Loss of Appetite, Malaise, Night Sweats, Changes in sleep, Weakness, Unintentional Wgt. Loss EENT: reports: Nose Congestion Respiratory: reports: No Symptoms reported, Other (COPD HISTORY) Cardiac: reports: No Symptoms Reported GI: reports: Nausea, Vomiting, Abdominal cramping : reports: No Symptoms Reported Musculoskeletal: reports: Other (FX OF LEFT FEMUR FX OF BACK) Integumentary: reports: Dryness Neuro: reports: Tremors Endocrine: reports: No Symptoms Reported Hematology: reports: No Symptoms Reported Psychiatric: reports: other (INSOMNIA) Patient History - Patient Medical History Hx Anemia: No Hx Asthma: Yes Hx Chronic Obstructive Pulmonary Disease (COPD): Yes (ON ALBUTERL AND SYMBICORT) Hx Cancer: No Hx Cardiac Disorders: No Hx Congestive Heart Failure: No Hx Hypertension: Yes (NO MED) Hx Hypercholesterolemia: No Hx Pacemaker: No HX Cerebrovascular Accident: No Hx Seizures: No Hx Dementia: No Hx Diabetes: No Hx Gastrointestinal Disorders: No Hx Liver Disease: No Hx Genitourinary Disorders: No Hx Sexually Transmitted Disorders: No Hx Renal Disease (ESRD): No Hx Thyroid Disease: No Hx Human Immunodeficiency Virus (HIV): (UNKNOWN) Hx Hepatitis C: No Hx Depression: No Hx Suicide Attempt: No Hx Bipolar Disorder: No Hx Schizophrenia: No Other Medical History: INSOMNIA,NO SUICIDAL,NO HOMICIDAL,TORO PALSY OF LEFT SIDE AT AGE OF 26 YEAR - Patient Surgical History Past Surgical History: Yes Hx Orthopedic Surgery: Yes (LEFT FEMUR IN 2006) Other Surgical History: SURGERY FOR FX OF BACK IN 1995 Anesthesia Reaction: No - PPD History Previous Implant?: Yes Documented Results: Negative w/o proof Implanted On Prior [facility] Admission?: Yes PPD to be Administered?: Yes - Smoking Cessation Smoking history: Current every day smoker Have you smoked in the past 12 months: Yes Aproximately how many cigarettes per day: 20 Hx Chewing Tobacco Use: No Initiated information on smoking cessation: Yes 'Breaking Loose' booklet given: 05/14/16 - Substance & Tx. History Hx Alcohol Use: No Hx Substance Use: Yes Substance Use Type: Opiates Hx Substance Use Treatment: Yes ([facility] 2006) - Substances Abused Percocet Route: Oral Frequency: Daily Amount used: 50-125mg Age of first use: 45 Date of Last Use: 05/14/16 Family Disease History - Family Disease History Family History: Denies Admission Physical Exam S - Vital Signs Vital Signs: Vital Signs - 24 hr 05/14/16 15:34 Temperature 98.1 F Pulse Rate 92 H Respiratory 20 Rate Blood Pressure 132/83 - Physical General Appearance: Yes: Moderate Distress, Tremorous, Irritable, Sweating, Anxious HEENTM: Yes: Nasal Congestion, Other (TORO PALSY LEFT OLD) Respiratory: Yes: Lungs Clear Neck: Yes: Within Normal Limits Breast: Yes: Within Normal Limits Cardiology: Yes: Within Normal Limits, Regular Rhythm, Regular Rate, S1, S2 Abdominal: Yes: Within Normal Limits, Normal Bowel Sounds, Non Tender, Soft Genitourinary: Yes: Within Normal Limits Musculoskeletal: Yes: Back pain, Muscle Pain Extremities: Yes: Tremors Neurological: Yes: medical oncologist II-XII NML intact, Fully Oriented, Alert, Motor Strength 5/5 (OLD TORO PALSY LEFT) Integumentary: Yes: Dry Lymphatic: Yes: Within Normal Limits - Diagnostic (1) Opioid dependence with withdrawal Current Visit: Yes Status: Acute (2) Frequent falls Current Visit: Yes Status: Acute (3) Toro palsy Current Visit: Yes Status: Acute (4) Peripheral neuropathy Current Visit: Yes Status: Acute (5) Status post closed fracture of left femur Current Visit: Yes Status: Acute (6) Head injury Current Visit: No Status: Acute Qualifiers: Encounter type: initial encounter Qualified Code(s): S09.90XA - Unspecified injury of head, initial encounter (7) History of back surgery Current Visit: Yes Status: Acute (8) COPD (chronic obstructive pulmonary disease) Current Visit: Yes Status: Acute (9) Insomnia Current Visit: Yes Status: Acute (10) Use of cane as ambulatory aid Current Visit: Yes Status: Acute (11) Abrasion of forehead Current Visit: Yes Status: Acute Cleared for Admission [facility] - Detox or Rehab [facility] Level of Care: Medically Managed Detox Regimen/Protocol: Methadone [facility] Breath Alcohol Content Breath Alcohol Content: 0 Urine Drug Screen - Results Drug Screen Negative: No Urine Drug Screen Results: BZO-Benzodiazepines, OXY-Oxycodone
[2016-05-14] MEDS ORDERED: IBUPROFEN 400 MG TABLET (FP) PO PRN (16:27)
[2016-05-14] MEDS ORDERED: P-EPHED 60MG/TRIPROLIDI 2.5MG TABLET PO PRN (16:27)
[2016-05-14] MEDS ORDERED: hydrOXYzine PAMOATE 25 MG CAPSULE (FP) PO PRN (16:27)
[2016-05-14] MEDS ORDERED: MAG HYDROX/AL HYDROX/SIMETH 30 ML UNIT-DOSE CUP PO PRN (16:27)
[2016-05-14] MEDS ORDERED: ACETAMINOPHEN 325 MG TABLET (FP) PO PRN (16:27)
[2016-05-14] MEDS ORDERED: MAGNESIUM CITRATE 300 ML BOTTLE PO PRN (16:27)
[2016-05-14] MEDS ORDERED: METHADONE HCL 10 MG TABLET (FOR DETOX USE ONLY) PO ONE ×2 (16:27→23:00)
[2016-05-14] MEDS ORDERED: MENTHOL/PHENOL 1 EACH UD MM PRN (16:27)
[2016-05-14] MEDS ORDERED: LOPERAMIDE HCL 2 MG CAPSULE PO PRN (16:27)
[2016-05-14] MEDS ORDERED: diphenhydrAMINE HCL 50 MG CAPSULE PO PRN (16:27)
[2016-05-14] MEDS ORDERED: MAGNESIUM HYDROX 2400MG/30ML ORAL SUSPENSION 30 ML CUP PO PRN (16:27)
[2016-05-14] MEDS ORDERED: guaiFENesin/D-METHORPHAN HB 10 ML UNIT-DOSE CUPS PO PRN (16:27)
[2016-05-14] MEDS ORDERED: ALBUTEROL SO4 6.7 GM HFA INHALER IH PRN (16:33)
[2016-05-14] MEDS: NICOTINE 21 MG/24 HOURS TOPICAL PATCH TD SCH (16:50)
[2016-05-14] MEDS ORDERED: GABAPENTIN 400 MG CAPSULE (FP) PO ONE (19:05)
[2016-05-14] MEDS: BUDESONIDE/FORMETEROL FUMARATE 80/4.5 mcg INHALER IH SCH (22:13)
[2016-05-14] MEDS: GABAPENTIN 400 MG CAPSULE (FP) PO SCH (22:13)
[2016-05-14] MEDS: THIAMINE HCL 100 MG TABLET (FP) PO SCH (22:14)
[2016-05-15] MEDS: diazePAM 5 MG TABLET PO PRN ×4 (03:29→21:58)
[2016-05-15] MEDS: GABAPENTIN 400 MG CAPSULE (FP) PO SCH ×3 (05:38→21:59)
[2016-05-15] MEDS ORDERED: METHADONE HCL 10 MG TABLET (FOR DETOX USE ONLY) PO ONE (10:00)
[2016-05-15] MEDS: PRENATAL VITAMINS W/ FOLIC ACID TABLET (FP) PO SCH (10:05)
[2016-05-15 10:06] LABS: ALBUMIN 3.4 g/dl (3.4-5.0); ANION GAP 9 (8-16); BILIRUBIN,TOTAL 0.3 mg/dL (0.2-1.0); CALCIUM 8.7 mg/dL (8.5-10.1); CO2 26 mmol/L (21-32); CREATININE 0.6 mg/dL (0.7-1.3); GLUCOSE,RANDOM 107 mg/dL (74-106); SGOT/AST 17 U/L (15-37); SGPT/ALT 22 U/L (12-78); TOT PROT 6.4 g/dl (6.4-8.2)
[2016-05-15] MEDS: BUDESONIDE/FORMETEROL FUMARATE 80/4.5 mcg INHALER IH SCH ×2 (10:06→21:59)
[2016-05-15] MEDS: NICOTINE 21 MG/24 HOURS TOPICAL PATCH TD SCH (10:06)
[2016-05-15 10:07] LABS: ALK PHOS 75 U/L (45-117)
[2016-05-15 10:17] LABS: MCH 29.5 pg (25.7-33.7); MCHC 33.4 g/dl (32.0-35.9); MEAN CELL VOLUME 88.5 fl (80-96); MEAN PLT VOLUME 7.9 fl (7.5-11.1); PLATELET COUNT 196 K/MM3 (134-434); RDW 14.3 % (11.9-15.9); WHITE BLOOD COUNT 6.4 K/mm3 (4.0-10.0)
[2016-05-15 10:23] LABS: URINE APPEARANCE CLEAR; URINE BILIRUBIN NEGATIVE (NEGATIVE); URINE BLOOD NEGATIVE (NEGATIVE); URINE COLOR STRAW; URINE GLUCOSE (UA) NEGATIVE (NEGATIVE); URINE KETONE NEGATIVE (NEGATIVE); URINE LEUK ESTERASE NEGATIVE (NEGATIVE); URINE NITRITE NEGATIVE (NEGATIVE); URINE PROTEIN NEGATIVE (NEGATIVE); URINE UROBILINOGEN NEGATIVE E.U./dl (0.2-1.0)
--- NOTE | 2016-05-15 10:28 | CONSULT ---
[facility] Psychiatric Consult - Data Date of interview: 05/15/16 Admission source: [facility]/Ricarda Haley Identifying data: MR Boyle is a 66 years old single male, unemployed on SSI, domiciles seeking detox treatment for percocet Substance Abuse History: - Smoking Cessation. Smoking history: Current every day smoker. Have you smoked in the past 12 months: Yes. Aproximately how many cigarettes per day: 20. Hx Chewing Tobacco Use: No. Initiated information on smoking cessation: Yes. 'Breaking Loose' booklet given: 05/14/16. - Substance & Tx. History. Hx Alcohol Use: No. Hx Substance Use: Yes. Substance Use Type : Opiates. Hx Substance Use Treatment: Yes ([facility] 2006). - Substances Abused. Percocet. Route: Oral. Frequency: Daily. Amount used: 50-125mg. Age of first use: 45. Date of Last Use: 05/14/16 Medical History: Significant for history of HTN, COPD, Holland palsy, surgery for fracture left femur in 2006 & fracture back in 1995. Smokes cigarettes 1ppd Psychiatric History: Denies previous psychiatric treatment. However, reports experiencing difficulty to sleep Physical/Sexual Abuse/Trauma History: Denies history of physical, sexual abuse as well as DV relationship Mental Status Exam - Mental Status Exam Alert and Oriented to: Time, Place, Person Cognitive Function: Fair Patient Appearance: Well Groomed Mood: Hopeful, Euthymic Affect: Appropriate Patient Behavior: Cooperative Speech Pattern: Clear Voice Loudness: Normal Thought Process: Intact Thought Disorder: Not Present Hallucinations: Denies Suicidal Ideation: Denies Homicidal Ideation: Denies Insight/Judgement: Poor Sleep: Poorly Appetite: Good Muscle strength/Tone: Normal Gait/Station: Normal Psychiatric Findings - Problem List ([place] 1, 2,3) (1) Substance-induced sleep disorder Current Visit: Yes Status: Acute (2) Opioid dependence with withdrawal Current Visit: Yes Status: Acute (3) Nicotine dependence Current Visit: Yes Status: Acute (4) Holland palsy Current Visit: Yes Status: Acute (5) COPD (chronic obstructive pulmonary disease) Current Visit: Yes Status: Acute (6) History of back surgery Current Visit: Yes Status: Acute (7) Hypertension Current Visit: No Status: Chronic - Initial Treatment Plan Initial Treatment Plan: Start Ambien 10 mg po HS prn for insomnia
--- NOTE | 2016-05-15 10:28 | HP ---
Psychiatrist Admission - Data Date of interview: 05/15/16 Admission source: [facility]/Ricarda Haley Identifying data: MR Boyle is a 66 years old single male, unemployed on SSI, domiciles seeking detox treatment for percocet Medical History: Significant for history of HTN, Holland palsy, surgery for fracture left femur in 2006 & fracture back in 1995. Smokes cigarettes 1ppd Psychiatric History: Denies previous psychiatric treatment. However, reports experiencing difficulty to sleep Physical/Sexual Abuse/Trauma History: Denies history of physical, sexual abuse as well as DV relationship Additional Comment: No criminal history Vital Signs: Vital Signs - 24 hr 05/14/16 05/14/16 05/14/16 15:34 17:33 21:59 Temperature 98.1 F 98.3 F 98.6 F Pulse Rate 92 H 97 H 90 Respiratory 20 20 20 Rate Blood Pressure 132/83 138/77 113/76 05/15/16 05/15/16 05/15/16 01:07 06:29 09:57 Temperature 96.5 F L 97.8 F Pulse Rate 76 79 Respiratory 18 16 18 Rate Blood Pressure 118/69 116/69 Allergies/Adverse Reactions: Allergies Allergy/AdvReac Type Severity Reaction Status Date / Time Penicillins Allergy Rash Verified 05/14/16 15:30
[2016-05-15] MEDS ORDERED: POTASSIUM CHLORIDE TABS 20 MEQ TABLET.ER (FP) PO ONE (14:00)
--- NOTE | 2016-05-15 14:00 | PN ---
BHS COWS - Scale Resting Pulse: 0= HI 80 or Below Sweatin=Flushed/Facial Moisture Restless Observation: 1= Difficult to Sit Still Pupil Size: 0= Normal to Room Light Bone or Joint Aches: 2= Severe Diffuse Aches Runny Nose/ Eye Tearin= Nasal Congestion GI Upset > 30mins: 0= None Tremor Observation of Outstretched Hands: 2= Slight Tremor Visible Yawning Observation: 1= 1-2x During Session Anxiety or Irritability: 1=Feels Anxious/Irritable Goose Flesh Skin: 3=Piloerection COWS Score: 13 BHS Progress Note (SOAP) Subjective: Interrupted sleep, Tremors, Fatigue, Headache. Objective: PT. A & O X 2 (DISORIENTED ABOUT DAY/ DATE). PT. OBSERVED MOVING ABUT UNIT IN WHEELCHAIR. 05/15/16 13:59 Vital Signs Temperature 97.6 F 05/15/16 12:52 Pulse Rate 80 05/15/16 12:52 Respiratory Rate 18 05/15/16 12:52 Blood Pressure 127/70 05/15/16 12:52 O2 Sat by Pulse Oximetry (%) Laboratory Last Values WBC 6.4 K/mm3 (4.0-10.0) 05/15/16 06:15 RBC 4.23 M/mm3 (4.00-5.60) 05/15/16 06:15 Hgb 12.5 GM/dL (11.7-16.9) D 05/15/16 06:15 Hct 37.4 % (35.4-49) 05/15/16 06:15 MCV 88.5 fl (80-96) 05/15/16 06:15 MCHC 33.4 g/dl (32.0-35.9) 05/15/16 06:15 RDW 14.3 % (11.9-15.9) 05/15/16 06:15 Plt Count 196 K/MM3 (134-434) 05/15/16 06:15 MPV 7.9 fl (7.5-11.1) 05/15/16 06:15 Sodium 140 mmol/L (136-145) 05/15/16 06:15 Potassium 3.2 mmol/L (3.5-5.1) L D 05/15/16 06:15 Chloride 105 mmol/L (98-107) 05/15/16 06:15 Carbon Dioxide 26 mmol/L (21-32) 05/15/16 06:15 Anion Gap 9 (8-16) 05/15/16 06:15 BUN 14 mg/dL (7-18) 05/15/16 06:15 Creatinine 0.6 mg/dL (0.7-1.3) L 05/15/16 06:15 Creat Clearance w eGFR > 60 (>60) 05/15/16 06:15 Random Glucose 107 mg/dL (74-106) H D 05/15/16 06:15 Calcium 8.7 mg/dL (8.5-10.1) 05/15/16 06:15 Total Bilirubin 0.3 mg/dL (0.2-1.0) D 05/15/16 06:15 AST 17 U/L (15-37) 05/15/16 06:15 ALT 22 U/L (12-78) 05/15/16 06:15 Alkaline Phosphatase 75 U/L (45-117) 05/15/16 06:15 Total Protein 6.4 g/dl (6.4-8.2) 05/15/16 06:15 Albumin 3.4 g/dl (3.4-5.0) 05/15/16 06:15 Urine Color Straw 05/15/16 06:15 Urine Appearance Clear 05/15/16 06:15 Urine pH 6.0 (5.0-8.0) 05/15/16 06:15 Ur Specific [place] 1.006 (1.001-1.035) 05/15/16 06:15 Urine Protein Negative (NEGATIVE) 05/15/16 06:15 Urine Glucose (UA) Negative (NEGATIVE) 05/15/16 06:15 Urine Ketones Negative (NEGATIVE) 05/15/16 06:15 Urine Blood Negative (NEGATIVE) 05/15/16 06:15 Urine Nitrite Negative (NEGATIVE) 05/15/16 06:15 Urine Bilirubin Negative (NEGATIVE) 05/15/16 06:15 Urine Urobilinogen Negative E.U./dl (0.2-1.0) 05/15/16 06:15 Ur Leukocyte Esterase Negative (NEGATIVE) 05/15/16 06:15 LABS NOTED. 05/15/16 14:02 05/15/16 14:03 Assessment: 05/15/16 14:02 WITHDRAWAL SYMPTOMS. Plan: CONTINUE DETOX. K-DUR, 40 MORENITA X 1 NOW, THEN 20 MEQ BID AFTER FOR LOW K LEVEL. RE-CHECK K LEVEL ON 05/17/2016.
--- NOTE | 2016-05-15 16:26 | EKG ---
Test Reason : Blood Pressure : / mmHG Vent. Rate : 086 BPM Atrial Rate : 086 BPM P-R Int : 148 ms QRS Dur : 082 ms QT Int : 364 ms P-R-T Axes : 061 050 048 degrees QTc Int : 435 ms NORMAL SINUS RHYTHM NORMAL ECG NO PREVIOUS ECGS AVAILABLE Confirmed by TRISTA SINGER MD ([id number]) on 05/15/2016 4:26:40 PM Referred By: Confirmed By:TRISTA SINGER MD
[2016-05-15] MEDS: ZOLPIDEM TARTRATE 10 MG TABLET (PARK CARE ONLY) PO PRN (21:58)
[2016-05-15] MEDS: POTASSIUM CHLORIDE TABS 20 MEQ TABLET.ER (FP) PO SCH (21:59)
[2016-05-15] MEDS: THIAMINE HCL 100 MG TABLET (FP) PO SCH (22:37)
[2016-05-16] MEDS: diazePAM 5 MG TABLET PO PRN ×3 (03:20→21:37)
[2016-05-16] MEDS: GABAPENTIN 400 MG CAPSULE (FP) PO SCH ×3 (05:35→21:38)
[2016-05-16] MEDS ORDERED: METHADONE HCL 5 MG TABLET (FOR DETOX USE ONLY) PO ONE (10:00)
[2016-05-16] MEDS: BUDESONIDE/FORMETEROL FUMARATE 80/4.5 mcg INHALER IH SCH ×2 (10:16→21:40)
[2016-05-16] MEDS: POTASSIUM CHLORIDE TABS 20 MEQ TABLET.ER (FP) PO SCH ×2 (10:17→21:38)
[2016-05-16] MEDS: PRENATAL VITAMINS W/ FOLIC ACID TABLET (FP) PO SCH (10:17)
[2016-05-16] MEDS: NICOTINE 21 MG/24 HOURS TOPICAL PATCH TD SCH (10:17)
--- NOTE | 2016-05-16 15:54 | PN ---
BHS COWS - Scale Resting Pulse: 1= [place] 81-100 Sweatin=Flushed/Facial Moisture Restless Observation: 1= Difficult to Sit Still Pupil Size: 0= Normal to Room Light Bone or Joint Aches: 2= Severe Diffuse Aches Runny Nose/ Eye Tearin= Runny Nose/Eyes GI Upset > 30mins: 2= Nausea/Diarrhea Tremor Observation of Outstretched Hands: 2= Slight Tremor Visible Yawning Observation: 1= 1-2x During Session Anxiety or Irritability: 2=Irritable/Anxious Goose Flesh Skin: 0=Smooth Skin COWS Score: 15 BHS Progress Note (SOAP) Subjective: Anxiety,tremors,sweating,interrupted sleep,restless. Objective: 05/16/16 15:53 Vital Signs - 8 hr 05/16/16 05/16/16 10:10 14:07 Temperature 97.0 F L 95.7 F L Pulse Rate 89 91 H Respiratory 16 16 Rate Blood Pressure 117/63 131/73 Laboratory Tests 05/15/16 05/15/16 05/15/16 06:15 06:15 06:15 WBC 6.4 RBC 4.23 Hgb 12.5 D Hct 37.4 MCV 88.5 MCHC 33.4 RDW 14.3 Plt Count 196 MPV 7.9 Sodium 140 Potassium 3.2 L D Chloride 105 Carbon Dioxide 26 Anion Gap 9 BUN 14 Creatinine 0.6 L Creat Clearance w eGFR > 60 Random Glucose 107 H D Calcium 8.7 Total Bilirubin 0.3 D AST 17 ALT 22 Alkaline Phosphatase 75 Total Protein 6.4 Albumin 3.4 Urine Color Urine Appearance Urine pH Ur Specific [place] Urine Protein Urine Glucose (UA) Urine Ketones Urine Blood Urine Nitrite Urine Bilirubin Urine Urobilinogen Ur Leukocyte Esterase RPR Titer Nonreactive 05/15/16 06:15 WBC RBC Hgb Hct MCV MCHC RDW Plt Count MPV Sodium Potassium Chloride Carbon Dioxide Anion Gap BUN Creatinine Creat Clearance w eGFR Random Glucose Calcium Total Bilirubin AST ALT Alkaline Phosphatase Total Protein Albumin Urine Color Straw Urine Appearance Clear Urine pH 6.0 Ur Specific [place] 1.006 Urine Protein Negative Urine Glucose (UA) Negative Urine Ketones Negative Urine Blood Negative Urine Nitrite Negative Urine Bilirubin Negative Urine Urobilinogen Negative Ur Leukocyte Esterase Negative RPR Titer labs noted,on k-dur Assessment: 05/16/16 15:54 withdrawal sx. Plan: Continue detox
[2016-05-16] MEDS: THIAMINE HCL 100 MG TABLET (FP) PO SCH (21:37)
[2016-05-16] MEDS: ZOLPIDEM TARTRATE 10 MG TABLET (PARK CARE ONLY) PO PRN (22:01)
[2016-05-17] MEDS: diazePAM 5 MG TABLET PO PRN ×2 (04:02→13:35)
[2016-05-17] MEDS: GABAPENTIN 400 MG CAPSULE (FP) PO SCH ×3 (06:31→22:25)
[2016-05-17] MEDS ORDERED: METHADONE HCL 5 MG TABLET (FOR DETOX USE ONLY) PO ONE (10:00)
[2016-05-17] MEDS: NICOTINE 21 MG/24 HOURS TOPICAL PATCH TD SCH (10:22)
[2016-05-17] MEDS: PRENATAL VITAMINS W/ FOLIC ACID TABLET (FP) PO SCH (10:23)
[2016-05-17] MEDS: POTASSIUM CHLORIDE TABS 20 MEQ TABLET.ER (FP) PO SCH ×2 (10:23→22:25)
[2016-05-17] MEDS: BUDESONIDE/FORMETEROL FUMARATE 80/4.5 mcg INHALER IH SCH ×2 (10:23→22:24)
--- NOTE | 2016-05-17 12:59 | PN ---
Psychiatric Progress Note Vital Signs: Vital Signs Period Temp Pulse Resp BP Sys/Davis Pulse Ox Last 24 Hr 95.7 F-100 F 75-105 16-18 111-134/60-76 Date of Session: 05/17/16 Chief Complaint:: " They think that I am crazy." HPI: Case of a 66 y/o male undergoing detox treatment for opiate dependence.Hospital course is uneventful except for mild episodes of acting out (cursing staff,using profane language,berating others) and attention-seeking behavior.Staff suspects patient of being psychotic.Consequently,a request is made for a psychiatric re-evaluation. ROS: Unremarkable at the time of this evaluation.Patient moves independently in a wheelchair.No evidence of cognitive impairment.No complaint of discomfort.Medical issues are being addressed. Current Medications: Active Medications Generic Name Dose Route Start Last Admin Trade Name Freq PRN Reason Stop Dose Admin Acetaminophen 650 mg 05/14/16 16:27 Tylenol - PO Q4H PRN FEVER OR PAIN Al Hydroxide/Mg Hydroxide 30 ml 05/14/16 16:27 Mylanta Oral Suspension - PO Q6H PRN DYSPEPSIA Albuterol Sulfate 2 puff 05/14/16 16:33 Ventolin Hfa Inhaler - IH Q4H PRN ASTHMA Budesonide/Formoterol Fumarate 2 puff 05/14/16 22:00 05/17/16 10:23 Symbicort 80/4.5mcg - IH 2 puff BID DARRIAN Administration Diazepam 10 mg 05/14/16 16:27 05/17/16 04:02 Valium - PO 05/17/16 16:26 10 mg Q4H PRN Administration WITHDRAWAL(CONT SUBST) Diphenhydramine HCl 50 mg 05/14/16 16:27 05/14/16 22:14 Benadryl - PO 50 mg HSMR1 PRN Administration INSOMNIA Eucalyptus/Menthol/Phenol/Sorbitol 1 each 05/14/16 16:27 Cepastat Lozenge - MM Q4H PRN SORE THROAT Gabapentin 400 mg 05/14/16 22:00 05/17/16 06:31 Neurontin - PO 400 mg TID DARRIAN Administration Guaifenesin 10 ml 05/14/16 16:27 Robitussin Dm - PO Q6H PRN COUGH Hydroxyzine Pamoate 25 mg 05/14/16 16:27 Vistaril - PO Q4H PRN AGITATION Ibuprofen 400 mg 05/14/16 16:27 05/17/16 06:28 Motrin - PO 400 mg Q6H PRN Administration SEVERE PAIN Loperamide HCl 4 mg 05/14/16 16:27 Imodium - PO Q6H PRN DIARRHEA Magnesium Citrate 300 ml 05/14/16 16:27 Citroma - PO Q48H PRN CONSTIPATION Magnesium Hydroxide 30 ml 05/14/16 16:27 Milk Of Magnesia - PO DAILY PRN CONSTIPATION Methadone HCl 10 mg 05/18/16 10:00 Dolophine - PO 05/18/16 10:01 ONCE ONE Methadone HCl 5 mg 05/19/16 06:00 Dolophine - PO 05/19/16 06:01 ONCE@0600 ONE Nicotine 21 mg 05/14/16 16:30 05/17/16 10:22 Nicoderm Patch - TD 21 mg DAILY DARRIAN Administration Potassium Chloride 20 meq 05/15/16 22:00 05/17/16 10:23 K-Dur - PO 20 meq BID DARRIAN Administration Multivit/Folic Acid/Iron 1 tab 05/15/16 10:00 05/17/16 10:23 Vitamins (Sjr) - PO 1 tab DAILY DARRIAN Administration Pseudoephedrine/Triprolidine 1 combo 05/14/16 16:27 Actifed - PO TID PRN NASAL CONGESTION Thiamine HCl 100 mg 05/14/16 22:00 05/16/16 21:37 Vitamin B1 - PO 100 mg HS DARRIAN Administration Zolpidem Tartrate 10 mg 05/15/16 22:00 05/16/16 22:01 Ambien - PO 05/18/16 21:59 10 mg HS PRN Administration INSOMNIA Medication(s) Change(s): No indication for changes. Current Side Effect: No Lab tests ordered: No Lab tests reviewed: Yes Provider note:: Previous notes are reviewed.Dr Green's new admission note is appreciated.Met with the patient.He is found to be cooperative,verbal,coherent and goal-directed.Well aware of his needs and expectations.Mr Boyle reports that the staff seems to think that " I am crazy because I say that I have captured ghosts's voices on tape and their shapes on film." Patient is friendly during this interview.He mentions his interest in documentaries about paranormal phenomena and his fascination for ghosts stories.Mr Boyle is not psychotic.He has consistently denied auditory/visual hallucinations.No delusions elicited.It can be argued,at best,that the patient had,in the past, pursued odd hobbies (used to take pictures of mausoleums in the hope of capturing ghostly images) but he has no history of causing harm to self or others.Mr Boyle is demanding,intrusive at times,argumentative and always expecting immediate gratification.Mental status is stable.No indication for acute psychiatric intervention.Benign hospital course. Total face to face time:: 30 Mental Status Exam - Mental Status Exam Alert and Oriented to: Time, Place, Person Cognitive Function: Good Patient Appearance: Disheveled Mood: Hopeful, Irritable Affect: Normal Range Patient Behavior: Talkative, Cooperative Speech Pattern: Clear Voice Loudness: Normal Thought Process: Goal Oriented Hallucinations: Denies Suicidal Ideation: Denies Homicidal Ideation: Denies Sleep: Fair Appetite: Fair Muscle strength/Tone: Normal Gait/Station: Other (moves around in a wheelchair) Psychiatric Treatment Plan - Problem List (1) Nicotine dependence Current Visit: Yes (2) Opioid dependence with withdrawal Current Visit: Yes (3) Substance-induced sleep disorder Current Visit: Yes (4) Unsteady gait Current Visit: Yes (5) Back pain Current Visit: Yes Qualifiers: Back pain location: low back pain Chronicity: chronic Back pain laterality: bilateral Sciatica presence: with sciatica Sciatica laterality: bilateral sciatica Qualified Code(s): M54.42 - Lumbago with sciatica, left side (6) Hypertension Current Visit: Yes (7) Hip pain Current Visit: Yes Qualifiers: Laterality: left Qualified Code(s): M25.552 - Pain in left hip (8) [place] palsy Current Visit: Yes (9) COPD (chronic obstructive pulmonary disease) Current Visit: Yes (10) History of back surgery Current Visit: Yes (11) Use of cane as ambulatory aid Current Visit: Yes
--- NOTE | 2016-05-17 15:56 | PN ---
[facility] Progress Note (SOAP) Subjective: Sweating,interrupted sleep,restless,back pain. Objective: 05/17/16 15:54 Vital Signs - 8 hr 05/17/16 05/17/16 10:31 13:33 Temperature 98.5 F 97.6 F Pulse Rate 100 H 107 H Respiratory 18 18 Rate Blood Pressure 134/72 151/77 Laboratory Last Values WBC 6.4 K/mm3 (4.0-10.0) 05/15/16 06:15 RBC 4.23 M/mm3 (4.00-5.60) 05/15/16 06:15 Hgb 12.5 GM/dL (11.7-16.9) D 05/15/16 06:15 Hct 37.4 % (35.4-49) 05/15/16 06:15 MCV 88.5 fl (80-96) 05/15/16 06:15 MCHC 33.4 g/dl (32.0-35.9) 05/15/16 06:15 RDW 14.3 % (11.9-15.9) 05/15/16 06:15 Plt Count 196 K/MM3 (134-434) 05/15/16 06:15 MPV 7.9 fl (7.5-11.1) 05/15/16 06:15 Sodium 140 mmol/L (136-145) 05/15/16 06:15 Potassium 3.9 mmol/L (3.5-5.1) D 05/17/16 08:20 Chloride 105 mmol/L (98-107) 05/15/16 06:15 Carbon Dioxide 26 mmol/L (21-32) 05/15/16 06:15 Anion Gap 9 (8-16) 05/15/16 06:15 BUN 14 mg/dL (7-18) 05/15/16 06:15 Creatinine 0.6 mg/dL (0.7-1.3) L 05/15/16 06:15 Creat Clearance w eGFR > 60 (>60) 05/15/16 06:15 Random Glucose 107 mg/dL (74-106) H D 05/15/16 06:15 Calcium 8.7 mg/dL (8.5-10.1) 05/15/16 06:15 Total Bilirubin 0.3 mg/dL (0.2-1.0) D 05/15/16 06:15 AST 17 U/L (15-37) 05/15/16 06:15 ALT 22 U/L (12-78) 05/15/16 06:15 Alkaline Phosphatase 75 U/L (45-117) 05/15/16 06:15 Total Protein 6.4 g/dl (6.4-8.2) 05/15/16 06:15 Albumin 3.4 g/dl (3.4-5.0) 05/15/16 06:15 Urine Color Straw 05/15/16 06:15 Urine Appearance Clear 05/15/16 06:15 Urine pH 6.0 (5.0-8.0) 05/15/16 06:15 Ur Specific [place] 1.006 (1.001-1.035) 05/15/16 06:15 Urine Protein Negative (NEGATIVE) 05/15/16 06:15 Urine Glucose (UA) Negative (NEGATIVE) 05/15/16 06:15 Urine Ketones Negative (NEGATIVE) 05/15/16 06:15 Urine Blood Negative (NEGATIVE) 05/15/16 06:15 Urine Nitrite Negative (NEGATIVE) 05/15/16 06:15 Urine Bilirubin Negative (NEGATIVE) 05/15/16 06:15 Urine Urobilinogen Negative E.U./dl (0.2-1.0) 05/15/16 06:15 Ur Leukocyte Esterase Negative (NEGATIVE) 05/15/16 06:15 RPR Titer Nonreactive (NONREACTIVE) 05/15/16 06:15 labs noted, K+ is now 3.9 Assessment: 05/17/16 15:55 Withdrawal sx. Low back pain Plan: continue detox Naprosyn & flexeril
[2016-05-17] MEDS ORDERED: NAPROXEN 500 MG TABLET (FP) PO ONE (17:00)
[2016-05-17] MEDS: CYCLOBENZAPRINE HCL 10 MG TABLET (FP) PO SCH ×2 (17:24→23:17)
[2016-05-17] MEDS ORDERED: cloNIDine HCL 0.1 MG TABLET PO PRN (21:40)
--- NOTE | 2016-05-17 21:43 | PN ---
S Progress Note Note: RECEIVED NURSE CALL PATIENT HAS CHRONIC BACK PAIN LIDOCAINE PATCH TO LUMBAR CLONIDINE 0.1 MG PRN CONTINUE DETOX
[2016-05-17] MEDS: NAPROXEN 500 MG TABLET (FP) PO SCH (22:25)
[2016-05-17] MEDS: THIAMINE HCL 100 MG TABLET (FP) PO SCH (22:25)
[2016-05-17] MEDS: ZOLPIDEM TARTRATE 10 MG TABLET (PARK CARE ONLY) PO PRN (22:27)
[2016-05-18] MEDS: CYCLOBENZAPRINE HCL 10 MG TABLET (FP) PO SCH ×3 (06:23→22:25)
[2016-05-18] MEDS: GABAPENTIN 400 MG CAPSULE (FP) PO SCH ×3 (07:11→22:27)
[2016-05-18] MEDS ORDERED: METHADONE HCL 10 MG TABLET (FOR DETOX USE ONLY) PO ONE (10:00)
[2016-05-18] MEDS: LIDOCAINE 5% TOPICAL PATCH TP SCH (10:22)
[2016-05-18] MEDS: NAPROXEN 500 MG TABLET (FP) PO SCH ×2 (10:22→22:25)
[2016-05-18] MEDS: POTASSIUM CHLORIDE TABS 20 MEQ TABLET.ER (FP) PO SCH ×2 (10:22→22:25)
[2016-05-18] MEDS: BUDESONIDE/FORMETEROL FUMARATE 80/4.5 mcg INHALER IH SCH ×2 (10:22→22:28)
[2016-05-18] MEDS: PRENATAL VITAMINS W/ FOLIC ACID TABLET (FP) PO SCH (10:22)
[2016-05-18] MEDS: NICOTINE 21 MG/24 HOURS TOPICAL PATCH TD SCH (10:23)
--- NOTE | 2016-05-18 10:35 | PN ---
[facility] Progress Note (SOAP) Subjective: Sweating,interrupted sleep,restless Objective: 05/18/16 10:34 Vital Signs - 8 hr 05/18/16 05/18/16 05/18/16 03:45 07:53 09:40 Temperature 96.8 F L 96.4 F L Pulse Rate 78 70 Respiratory 18 16 18 Rate Blood Pressure 105/68 116/65 Laboratory Tests 05/15/16 05/15/16 05/15/16 06:15 06:15 06:15 WBC 6.4 RBC 4.23 Hgb 12.5 D Hct 37.4 MCV 88.5 MCHC 33.4 RDW 14.3 Plt Count 196 MPV 7.9 Sodium 140 Potassium 3.2 L D Chloride 105 Carbon Dioxide 26 Anion Gap 9 BUN 14 Creatinine 0.6 L Creat Clearance w eGFR > 60 Random Glucose 107 H D Calcium 8.7 Total Bilirubin 0.3 D AST 17 ALT 22 Alkaline Phosphatase 75 Total Protein 6.4 Albumin 3.4 Urine Color Urine Appearance Urine pH Ur Specific [place] Urine Protein Urine Glucose (UA) Urine Ketones Urine Blood Urine Nitrite Urine Bilirubin Urine Urobilinogen Ur Leukocyte Esterase RPR Titer Nonreactive 05/15/16 05/17/16 06:15 08:20 WBC RBC Hgb Hct MCV MCHC RDW Plt Count MPV Sodium Potassium 3.9 D Chloride Carbon Dioxide Anion Gap BUN Creatinine Creat Clearance w eGFR Random Glucose Calcium Total Bilirubin AST ALT Alkaline Phosphatase Total Protein Albumin Urine Color Straw Urine Appearance Clear Urine pH 6.0 Ur Specific [place] 1.006 Urine Protein Negative Urine Glucose (UA) Negative Urine Ketones Negative Urine Blood Negative Urine Nitrite Negative Urine Bilirubin Negative Urine Urobilinogen Negative Ur Leukocyte Esterase Negative RPR Titer labs noted,K+ replacement given Assessment: 05/18/16 10:35 Withdrawal sx. Plan: Continue detox
[2016-05-18] MEDS: THIAMINE HCL 100 MG TABLET (FP) PO SCH (22:25)
[2016-05-18] MEDS ORDERED: ZOLPIDEM TARTRATE 5 MG TABLET PO ONE (22:44)
[2016-05-19] MEDS: CYCLOBENZAPRINE HCL 10 MG TABLET (FP) PO SCH ×3 (05:06→22:33)
[2016-05-19] MEDS: GABAPENTIN 400 MG CAPSULE (FP) PO SCH ×3 (05:12→22:33)
[2016-05-19] MEDS ORDERED: METHADONE HCL 5 MG TABLET (FOR DETOX USE ONLY) PO ONE (06:00)
--- NOTE | 2016-05-19 09:48 | PN ---
S Progress Note (SOAP) Subjective: Pt. claims that he felt dizzy and his head hit the flushing stem next to handle. He suffered a small bruise on the left side of forehead denies LOC. He's alert,coherent & oriented x 3. Objective: 05/19/16 09:47 Vital Signs - 24 hr 05/18/16 05/18/16 05/18/16 15:38 17:23 21:50 Temperature 97 F L 96.8 F L 96.8 F L Pulse Rate 99 H 90 90 Respiratory 18 20 20 Rate Blood Pressure 125/69 110/59 110/59 05/19/16 05/19/16 05/19/16 00:37 03:30 06:29 Temperature 97.1 F L Pulse Rate 94 H Respiratory 18 16 18 Rate Blood Pressure 110/64 05/19/16 09:21 Temperature 98.7 F Pulse Rate 100 H Respiratory 20 Rate Blood Pressure 120/71 Head : small bruise lt. side of forehead Assessment: 05/19/16 09:48 Withdrawal sx. Fall with head trauma Plan: Fall protocol #1
[2016-05-19] MEDS: BUDESONIDE/FORMETEROL FUMARATE 80/4.5 mcg INHALER IH SCH ×2 (10:21→22:33)
[2016-05-19] MEDS: PRENATAL VITAMINS W/ FOLIC ACID TABLET (FP) PO SCH (10:21)
[2016-05-19] MEDS: LIDOCAINE 5% TOPICAL PATCH TP SCH (10:21)
[2016-05-19] MEDS: POTASSIUM CHLORIDE TABS 20 MEQ TABLET.ER (FP) PO SCH ×2 (10:22→22:33)
[2016-05-19] MEDS: NICOTINE 21 MG/24 HOURS TOPICAL PATCH TD SCH (10:22)
[2016-05-19] MEDS: NAPROXEN 500 MG TABLET (FP) PO SCH ×2 (10:22→22:33)
[2016-05-19] MEDS: THIAMINE HCL 100 MG TABLET (FP) PO SCH (22:33)
[2016-05-20] MEDS: CYCLOBENZAPRINE HCL 10 MG TABLET (FP) PO SCH ×3 (06:14→22:59)
[2016-05-20] MEDS: GABAPENTIN 400 MG CAPSULE (FP) PO SCH ×3 (06:14→23:00)
[2016-05-20] MEDS: PRENATAL VITAMINS W/ FOLIC ACID TABLET (FP) PO SCH (09:07)
[2016-05-20] MEDS: NAPROXEN 500 MG TABLET (FP) PO SCH ×2 (09:09→23:00)
[2016-05-20] MEDS: POTASSIUM CHLORIDE TABS 20 MEQ TABLET.ER (FP) PO SCH ×2 (09:10→22:59)
[2016-05-20] MEDS: BUDESONIDE/FORMETEROL FUMARATE 80/4.5 mcg INHALER IH SCH ×2 (09:10→23:00)
[2016-05-20] MEDS: NICOTINE 21 MG/24 HOURS TOPICAL PATCH TD SCH (09:10)
[2016-05-20] MEDS: LIDOCAINE 5% TOPICAL PATCH TP SCH (09:11)
--- NOTE | 2016-05-20 10:53 | PN ---
S Progress Note (SOAP) Subjective: Interrupted Sleep, Mild body aches, mild nausea but eating all of meals Objective: Vital Signs Temperature 98.1 F 05/20/16 09:21 Pulse Rate 97 H 05/20/16 09:21 Respiratory Rate 20 05/20/16 09:21 Blood Pressure 134/77 05/20/16 09:21 O2 Sat by Pulse Oximetry (%) Laboratory Last Values WBC 6.4 K/mm3 (4.0-10.0) 05/15/16 06:15 RBC 4.23 M/mm3 (4.00-5.60) 05/15/16 06:15 Hgb 12.5 GM/dL (11.7-16.9) D 05/15/16 06:15 Hct 37.4 % (35.4-49) 05/15/16 06:15 MCV 88.5 fl (80-96) 05/15/16 06:15 MCHC 33.4 g/dl (32.0-35.9) 05/15/16 06:15 RDW 14.3 % (11.9-15.9) 05/15/16 06:15 Plt Count 196 K/MM3 (134-434) 05/15/16 06:15 MPV 7.9 fl (7.5-11.1) 05/15/16 06:15 Sodium 140 mmol/L (136-145) 05/15/16 06:15 Potassium 3.9 mmol/L (3.5-5.1) D 05/17/16 08:20 Chloride 105 mmol/L (98-107) 05/15/16 06:15 Carbon Dioxide 26 mmol/L (21-32) 05/15/16 06:15 Anion Gap 9 (8-16) 05/15/16 06:15 BUN 14 mg/dL (7-18) 05/15/16 06:15 Creatinine 0.6 mg/dL (0.7-1.3) L 05/15/16 06:15 Creat Clearance w eGFR > 60 (>60) 05/15/16 06:15 POC Glucometer 139 UNITS (()) 05/18/16 14:52 Random Glucose 107 mg/dL (74-106) H D 05/15/16 06:15 Calcium 8.7 mg/dL (8.5-10.1) 05/15/16 06:15 Total Bilirubin 0.3 mg/dL (0.2-1.0) D 05/15/16 06:15 AST 17 U/L (15-37) 05/15/16 06:15 ALT 22 U/L (12-78) 05/15/16 06:15 Alkaline Phosphatase 75 U/L (45-117) 05/15/16 06:15 Total Protein 6.4 g/dl (6.4-8.2) 05/15/16 06:15 Albumin 3.4 g/dl (3.4-5.0) 05/15/16 06:15 Urine Color Straw 05/15/16 06:15 Urine Appearance Clear 05/15/16 06:15 Urine pH 6.0 (5.0-8.0) 05/15/16 06:15 Ur Specific [place] 1.006 (1.001-1.035) 05/15/16 06:15 Urine Protein Negative (NEGATIVE) 05/15/16 06:15 Urine Glucose (UA) Negative (NEGATIVE) 05/15/16 06:15 Urine Ketones Negative (NEGATIVE) 05/15/16 06:15 Urine Blood Negative (NEGATIVE) 05/15/16 06:15 Urine Nitrite Negative (NEGATIVE) 05/15/16 06:15 Urine Bilirubin Negative (NEGATIVE) 05/15/16 06:15 Urine Urobilinogen Negative E.U./dl (0.2-1.0) 05/15/16 06:15 Ur Leukocyte Esterase Negative (NEGATIVE) 05/15/16 06:15 RPR Titer Nonreactive (NONREACTIVE) 05/15/16 06:15 labs noted Assessment: Mild Withdrawal symptoms Plan: Continue Detox
[2016-05-20] MEDS: THIAMINE HCL 100 MG TABLET (FP) PO SCH (23:00)
[2016-05-21] MEDS: GABAPENTIN 400 MG CAPSULE (FP) PO SCH (06:31)
[2016-05-21] MEDS: CYCLOBENZAPRINE HCL 10 MG TABLET (FP) PO SCH (06:31)
[2016-05-21 07:00] VITALS: BP 159/85; PULSE 86; TEMP 97.6
[2016-05-21] MEDS: POTASSIUM CHLORIDE TABS 20 MEQ TABLET.ER (FP) PO SCH (09:28)
[2016-05-21] MEDS: BUDESONIDE/FORMETEROL FUMARATE 80/4.5 mcg INHALER IH SCH (09:28)
[2016-05-21] MEDS: NAPROXEN 500 MG TABLET (FP) PO SCH (09:29)
[2016-05-21] MEDS: PRENATAL VITAMINS W/ FOLIC ACID TABLET (FP) PO SCH (09:29)
[2016-05-21] MEDS: NICOTINE 21 MG/24 HOURS TOPICAL PATCH TD SCH (09:29)
[2016-05-21] MEDS: LIDOCAINE 5% TOPICAL PATCH TP SCH (09:30)
--- NOTE | 2016-05-21 14:23 | DS ---
[facility] Detox Discharge Summary Admission Date: 05/14/16 Discharge Date: 05/21/16 - History Present History: Opioid Dependence Pertinent Past History: COPD HTN ASTHMA Peripheral neuropathy - Physical Exam Results Vital Signs: Vital Signs Temperature 97.6 F 05/21/16 06:59 Pulse Rate 86 05/21/16 06:59 Respiratory Rate 18 05/21/16 06:59 Blood Pressure 159/85 05/21/16 06:59 O2 Sat by Pulse Oximetry (%) Pertinent Admission Physical Exam Findings: Withdrawal symptoms Laboratory Tests 05/15/16 05/15/16 05/15/16 06:15 06:15 06:15 WBC 6.4 RBC 4.23 Hgb 12.5 D Hct 37.4 MCV 88.5 MCHC 33.4 RDW 14.3 Plt Count 196 MPV 7.9 Sodium 140 Potassium 3.2 L D Chloride 105 Carbon Dioxide 26 Anion Gap 9 BUN 14 Creatinine 0.6 L Creat Clearance w eGFR > 60 POC Glucometer Random Glucose 107 H D Calcium 8.7 Total Bilirubin 0.3 D AST 17 ALT 22 Alkaline Phosphatase 75 Total Protein 6.4 Albumin 3.4 Urine Color Urine Appearance Urine pH Ur Specific [place] Urine Protein Urine Glucose (UA) Urine Ketones Urine Blood Urine Nitrite Urine Bilirubin Urine Urobilinogen Ur Leukocyte Esterase RPR Titer Nonreactive 05/15/16 05/17/16 05/18/16 06:15 08:20 14:52 WBC RBC Hgb Hct MCV MCHC RDW Plt Count MPV Sodium Potassium 3.9 D Chloride Carbon Dioxide Anion Gap BUN Creatinine Creat Clearance w eGFR POC Glucometer 139 Random Glucose Calcium Total Bilirubin AST ALT Alkaline Phosphatase Total Protein Albumin Urine Color Straw Urine Appearance Clear Urine pH 6.0 Ur Specific [place] 1.006 Urine Protein Negative Urine Glucose (UA) Negative Urine Ketones Negative Urine Blood Negative Urine Nitrite Negative Urine Bilirubin Negative Urine Urobilinogen Negative Ur Leukocyte Esterase Negative RPR Titer Labs noted - Treatment Hospital Course: Detox Protocol Followed, Detoxed Safely, Responded well, Discharged Condition Good - Medication Discharge Medications: Ambulatory Orders Albuterol Sulfate Inhaler - [Ventolin Hfa Inhaler -] 2 inh PO Q4H 05/14/16 Budesonide/Formeterol Fumarate [SYMBICORT 80/4.5mcg -] 1 inh PO PRN PRN Oxycodone HCl/Acetaminophen [Percocet 5-325 mg Tablet] 2 tab PO Q6H 05/14/16 Gabapentin [Neurontin -] 400 mg PO Q8H #90 capsule 05/21/16 - Diagnosis (1) COPD (chronic obstructive pulmonary disease) Status: Chronic (2) Peripheral neuropathy Status: Chronic (3) Hypertension Status: Chronic (4) Asthma Status: Chronic (5) Opioid dependence with withdrawal Status: Acute - AMA Did Patient Leave Against Medical Advice: No
== END 2016-05-21 09:37 | disposition home or self-care (01) | DRG 897 ==
LOC: YASAS 15:06 → Y3N 15:52
PROVIDERS: ADMIT Internal Medicine; ATTEND Internal Medicine
PROC: HZ2ZZZZ Detoxification Services for Substance Abuse Treatment (ICD-10-PCS; principal; 2016-05-21)
DX: F11.23 Opioid dependence with withdrawal (principal); F19.282 Other psychoactive substance dependence with psychoactive substance-induced sleep disorder; F17.210 Nicotine dependence, cigarettes, uncomplicated; J44.9 Chronic obstructive pulmonary disease, unspecified; J45.909 Unspecified asthma, uncomplicated; I10 Essential (primary) hypertension; G51.0 Bell's palsy; M25.552 Pain in left hip; R26.81 Unsteadiness on feet; G62.9 Polyneuropathy, unspecified
CPT/HCPCS: 36415; 70450-TC; 80053; 81003; 84132; 85027; 86593; 93005; 93010; 99282-25

== ENCOUNTER 2016-05-22 10:54 | Emergency (ER) | payer OTHER ==
[2016-05-22 11:00] VITALS: BP 149/82; PULSE 101; TEMP 98.3; BMI 22.5
--- NOTE | 2016-05-22 11:20 | PDOC ---
History of Present Illness - General Chief Complaint: Pain Stated Complaint: LT HIP/LEG/BACK PAIN History Source: Patient Exam Limitations: No Limitations - History of Present Illness Initial Comments: 05/22/16 11:40 66y M hx of neuorpathy of LE, copd, htn, presents with L hip/back pain. Pt states he was walking this morning when he fell on L hip. The pt is well known to me, he was originally seen in the ED, was worked up for hip pain s/p trauma, admitted and evaluated by PT. Pt then came back for the same pain and left because we would not give him narcotics. He came back shortly afterwads and was discharged to get percocet detox which he completed yesterday. The pt is complaining of similar pain after falling today - no new neurologic complaints. No urinary or bowel incontinence. pt state the pain is much worse than it has ever been when Lulú seen him. Past History - Past Medical History Allergies/Adverse Reactions: Allergies Allergy/AdvReac Type Severity Reaction Status Date / Time Penicillins Allergy Rash Verified 05/14/16 15:30 Home Medications: Ambulatory Orders NK [No Known Home Medication] 05/22/16 Anemia: No Asthma: Yes Cancer: No Cardiac Disorders: No CVA: No COPD: Yes (NOT TAKING HIS MEDS) CHF: No Dementia: No Diabetes: No GI Disorders: No Disorders: No HTN: Yes (NO MED) Hypercholesterolemia: No Kidney Stones: No Liver Disease: No Suicide Attempt (Hx): No Seizures: No Thyroid Disease: No - Surgical History Abdominal Surgery: No Appendectomy: No Cardiac Surgery: No Cholecystectomy: No Lung Surgery: No Neurologic Surgery: No Orthopedic Surgery: Yes (LEFT FEMUR IN 2006) - Reproductive History Testicular Surgery: No - Immunization History Immunization Up to Date: Yes - Psycho/Social/Smoking Cessation Hx Anxiety: No Suicidal Ideation: No Smoking History: Current every day smoker Have you smoked in the past 12 months: Yes Number of Cigarettes Smoked Daily: 10 Information on smoking cessation initiated: Yes 'Breaking Loose' booklet given: 05/22/16 Hx Alcohol Use: No Drug/Substance Use Hx: Yes Substance Use Type: Opiates Hx Substance Use Treatment: Yes ([facility] 2006) Trauma Specific PMHX - Complaint Specific PMHX Arthritis: No Review of Systems - Review of Systems Able to Perform ROS?: Yes Comments:: 05/22/16 11:42 Constitutional - no reported Fever, Chills, weakness, HEENT: no reported vision changes, sore throat Respiratory: no reported cough, sob, hemoptysis Cardiac: no reported chest pain, palpitations, light headedness, leg swelling Abd/GI: no reported abd pain, nausea, vomiting, blood per rectum, melena, diarrhea : no reported dysuria, frequency, discharge Musculskelatal - +L hip pain, L back pain, tingling in LLE (chronic) no reported joint swelling skin - no reported bruising, erythema, rash neurological: no reported headache, numbness, focal weakness, tingling, ataxia, weakness hematologic: no reported anemia, easy bruising, easy bleeding *Physical Exam - Vital Signs Last Vital Signs Temp Pulse Resp BP Pulse Ox 98.3 F 101 H 18 149/82 98 05/22/16 10:56 05/22/16 10:56 05/22/16 10:56 05/22/16 10:56 05/22/16 10:56 - Physical Exam Comments: 05/22/16 11:44 GENERAL: The patient is awake, alert, and fully oriented, Nontoxic - in no acute distress. HEAD: Normocephalic, atraumatic. EYES: extraocular movements intact, sclera anicteric, conjunctiva clear. ENT: Normal voice, Moist mucous membranes. NECK: Normal range of motion, supple LUNGS: Breath sounds equal, clear to auscultation bilaterally. No wheezes, no rhonchi, no rales. HEART: Regular rate and rhythm, normal S1 and S2 without murmur, rub or gallop. BACK: Minimal lumbar tenderness on palpatin, no erythema, crepitus, ecchymosis m ABDOMEN: Soft, nontender, normoactive bowel sounds. No guarding, no rebound. . No CVA tenderness EXTREMITIES: mild subjective pain on hip flexion/extension, no focal tenderness , ecchymosis, +foot drop of LLE NEUROLOGICAL: No facial assymetry, Normal speech, PSYCH: Normal mood, normal affect. SKIN: Warm, Dry, normal turgor, Medical Decision Making - Medical Decision Making 05/22/16 11:45 pt initially complained of worse pain hes ever been in, requesting percocet, then when i asked him if he really wanted that since he just finished detox, he requeseted tramadol. although he claimed to be in signficant pain on my exam and was wincing when i was moving his L hip, he followed me out of the room, asking for tramadol or something stronger than tylenol. the patient states he is going to leave when i said iw as not going to give him any narcotics. carla put an xray for his hip/back but will defer as the pt is ambulating in his normal gait without any discomfort. will have pt fu with his pmd/pain management. I discussed the physical exam findings, ancillary test results and final diagnoses with the patient. I answered all of the patient's questions. The patient was satisfied with the care received and felt comfortable with the discharge plan and treatment plan. The patient will call their primary care physician within 24 hours to arrange follow-up and will return to the Emergency Department with any new, persistent or worsening symptoms. *DC/Admit/Observation/Transfer Diagnosis at time of Disposition: Hip pain, left Back pain Qualifiers: Back pain location: low back pain Chronicity: chronic Back pain laterality: left Sciatica presence: without sciatica Qualified Code(s): M54.5 - Low back pain - Discharge Dispostion Disposition: HOME Condition at time of disposition: Stable Admit: No - Referrals Referrals: [facility] [Provider Group] - Patient Instructions Printed Discharge Instructions: DI for Low Back Pain Additional Instructions: Return to the emergency department immediately with ANY new, persistent or worsening symptoms. You MUST call and follow up with your doctor tomorrow for further evaluation of your symptoms. Results were discussed with you. Please make sure your doctor reviews the results of your emergency evaluation. If you had any xrays during your visit, it was read preliminarily by myself, a Radiologist will review it and if there are any additional findings we will call you.
[2016-05-22] MEDS ORDERED: ACETAMINOPHEN 325 MG TABLET (FP) PO ONE (11:26)
[2016-05-22] MEDS ORDERED: ACETAMINOPHEN 325 MG TABLET (FP) ONE (11:30)
== END 2016-05-22 11:45 | disposition home or self-care (01) ==
LOC: FER 10:54
DX: M54.5 Low back pain (principal); W18.30XA Fall on same level, unspecified, initial encounter; Y93.9 Activity, unspecified; Y92.9 Unspecified place or not applicable; J45.909 Unspecified asthma, uncomplicated; J44.9 Chronic obstructive pulmonary disease, unspecified; I10 Essential (primary) hypertension; F17.210 Nicotine dependence, cigarettes, uncomplicated
CPT/HCPCS: 99282-25

== ENCOUNTER 2016-06-08 21:45 | Emergency (ER) | payer OTHER ==
[2016-06-08 21:51] VITALS: BP 155/95; PULSE 92; TEMP 98.5; BMI 19.8
--- NOTE | 2016-06-08 22:18 | PDOC ---
History of Present Illness - General Chief Complaint: Injury Stated Complaint: FALL/INJURY Time Seen by Provider: 06/08/16 21:55 - History of Present Illness Initial Comments: 06/08/16 23:07 CHIEF COMPLAINT: head/neck pain s/p fall HISTORY OF PRESENT ILLNESS: 66 yo M with hx of opioid abuse, neuropathy of LE, COPD, HTN, presents neck pain s/p fall. Pt states he was walking earlier when he slipped on ice and fell. Patient complains that he "can't move his neck" due to pain and the pain radiates down his spine to his legs. This patient is well known to this ER with hx of drug seeking behavior. No recent travel or sick contacts. PAST MEDICAL HISTORY: Denies past medical history FAMILY HISTORY: Denies SOCIAL HISTORY: Current smoker, 10 cigarettes daily. Denies alcohol, illicit drug use. SURGICAL HISTORY: Denies ALLERGIES: PCN REVIEW OF SYSTEMS General/Constitutional: Denies fever or chills. Denies weakness, weight change. HEENT: Denies change in vision. Denies ear pain or discharge. Denies sore throat. Cardiovascular: Denies chest pain or shortness of breath. Respiratory: Denies cough, wheezing, or hemoptysis. Gastrointestinal: Denies nausea, vomiting, diarrhea or constipation. Denies rectal bleeding. Genitourinary: Denies dysuria, frequency, or change in urination. Musculoskeletal: "Neck pain that goes all the way down my spine to my left leg. " Skin and breasts: Denies rash or easy bruising. Neurologic: Denies headache, vertigo, loss of consciousness, or loss of sensation. PHYSICAL EXAM General Appearance: Well-appearing, appropriately dressed. No apparent distress , no intoxication. HEENT: EOMI, PERRLA, normal ENT inspection, normal voice, TMs normal, pharynx normal. No conjunctival pallor. No photophobia, scleral icterus. Neck: Supple. Trachea midline. No tenderness, rigidity, carotid bruit, stridor , lymphadenopathy, or thyromegaly. Respiratory/Chest: Lungs CTAB. No shortness of breath, chest tenderness, respiratory distress, accessory muscle use. No crackles, rales, rhonchi, stridor , wheezing, dullness Cardiovascular: RRR. S1, S2. No JVD, murmur, bradycardia, tachycardia. Vascular Pulses: Dorsalis-Pedis (R): 2+, Dorsalis-Pedis (L): 2+ Gastrointestinal/Abdominal: Normal bowel sounds. Abdomen soft, non-distended. No tenderness or rebound tenderness. No organomegaly, pulsatile mass, guarding , hernia, hepatomegaly, splenomegaly. Lymphatic: No adenopathy, tenderness. Musculoskeletal/Extremities: Tenderness to cervical spine, patient appears unable to left head up. Erythematous megan to cervical spine. Normal inspection. FROM of all extremities, normal capillary refill. Pelvis Stable. No CVA tenderness. No tenderness to extremities, pedal edema, swelling, erythema or deformity. Integumentary: Appropriate color, dry, warm. 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 Fully oriented, alert. Appropriate mood/affect. Motor strength 5/5. No appreciable EOM palsy, facial droop or sensory deficit. Past History - Past Medical History Allergies/Adverse Reactions: Allergies Allergy/AdvReac Type Severity Reaction Status Date / Time Penicillins Allergy Rash Verified 06/08/16 21:48 Home Medications: Ambulatory Orders Ibuprofen 800 mg PO TID #21 tablet 06/09/16 Anemia: No Asthma: Yes Cancer: No Cardiac Disorders: No CVA: No COPD: Yes (NOT TAKING HIS MEDS) CHF: No Dementia: No Diabetes: No GI Disorders: No Disorders: No HTN: Yes (NO MED) Hypercholesterolemia: No Kidney Stones: No Liver Disease: No Suicide Attempt (Hx): No Seizures: No Thyroid Disease: No - Surgical History Abdominal Surgery: No Appendectomy: No Cardiac Surgery: No Cholecystectomy: No Lung Surgery: No Neurologic Surgery: No Orthopedic Surgery: Yes (LEFT FEMUR IN 2006) - Reproductive History Testicular Surgery: No - Immunization History Immunization Up to Date: Yes - Psycho/Social/Smoking Cessation Hx Anxiety: No Suicidal Ideation: No Smoking History: Current every day smoker Have you smoked in the past 12 months: Yes Number of Cigarettes Smoked Daily: 10 Information on smoking cessation initiated: Yes 'Breaking Loose' booklet given: 06/08/16 Hx Alcohol Use: No Drug/Substance Use Hx: Yes Substance Use Type: Opiates Hx Substance Use Treatment: Yes ([facility] 2006) Trauma Specific PMHX - Complaint Specific PMHX Arthritis: No *Physical Exam - Vital Signs Last Vital Signs Temp Pulse Resp BP Pulse Ox 98.5 F 92 H 18 155/95 97 06/08/16 21:48 06/08/16 21:48 06/08/16 21:48 06/08/16 21:48 06/08/16 21:48 ED Treatment Course - LABORATORY CBC & Chemistry Diagram: 06/08/16 22:15 Medical Decision Making - Medical Decision Making 06/08/16 23:12 66 yo M with hx of opioid abuse, neuropathy of LE, COPD, HTN, presents neck pain s/p fall. 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 At this time patient it appears this may be pain medication seeking behavior as the patient complaint of "unable to move neck" has changed drastically to lying comfortable in stretcher. 06/08/16 23:14 *DC/Admit/Observation/Transfer Diagnosis at time of Disposition: Frequent falls Opioid dependence Qualifiers: Substance use status: with unspecified opioid-induced disorder Qualified Code(s ): F11.29 - Opioid dependence with unspecified opioid-induced disorder - Discharge Dispostion Disposition: I.P. ALCOHOL/SUBS ABUSE REHAB Condition at time of disposition: Stable Admit: No - Prescriptions Prescriptions: Ibuprofen 800 mg PO TID #21 tablet - Patient Instructions Printed Discharge Instructions: How to Prevent Falls Additional Instructions: Please take medication as prescribed and follow up with your primary care doctor. If you experience blurry vision, slurred speech, weakness to one side, dizziness, vomiting, or any new or worsening symptoms, please return to the ER.
[2016-06-08] MEDS ORDERED: KETOROLAC TROMETHAMINE 60 MG/2 ML VIAL IVPUSH ONE (22:24)
[2016-06-08] MEDS ORDERED: KETOROLAC TROMETHAMINE 60 MG/2 ML VIAL ONE (22:41)
[2016-06-08 23:37] LABS: EOSINOPHIL 1.4 % (0-4.5); MCH 29.1 pg (25.7-33.7); MCHC 33.4 g/dl (32.0-35.9); MEAN PLT VOLUME 7.3 fl (7.5-11.1); NEUTROPHILS 72.6 % (42.8-82.8); PLATELET COUNT 293 K/MM3 (134-434); RDW 14.4 % (11.9-15.9); WHITE BLOOD COUNT 11.2 K/mm3 (4.0-10.0)
[2016-06-08 23:51] LABS: INR 1.12 (0.82-1.09); PROTHROMBIN TIME (PATIENT) 12.3 SEC (9.98-11.88)
== END 2016-06-09 00:38 | disposition other institution (70) ==
LOC: JER 21:45
PROC: 3E0333Z Introduction of Anti-inflammatory into Peripheral Vein, Percutaneous Approach (ICD-10-PCS; principal; 2016-06-08)
DX: M54.2 Cervicalgia (principal); M54.6 Pain in thoracic spine; W00.0XXA Fall on same level due to ice and snow, initial encounter; Y93.01 Activity, walking, marching and hiking; Y92.480 Sidewalk as the place of occurrence of the external cause; I10 Essential (primary) hypertension; J44.9 Chronic obstructive pulmonary disease, unspecified; G62.9 Polyneuropathy, unspecified; F11.10 Opioid abuse, uncomplicated
CPT/HCPCS: 36415; 70450-TC; 72125-TC; 85025; 85610; 99282-25

== ENCOUNTER 2016-08-26 12:13 | Emergency (ER) | payer OTHER ==
[2016-08-26 12:23] VITALS: BP 150/77; PULSE 85; TEMP 98.2; BMI 19.8
--- NOTE | 2016-08-26 12:47 | PDOC ---
History of Present Illness - General History Source: Patient, Old Records Exam Limitations: No Limitations <Felicita Salcedo - Last Filed: 08/26/16 12:40> - General History Source: Patient, Old Records Exam Limitations: No Limitations - History of Present Illness Initial Comments: 08/26/16 12:52 The patient is a 66 year old male, with a significant past medical history of opioid abuse, neuropathy of LE, COPD, chronic hip pain and HTN, who presents to the emergency department with pain to the right 2nd, 3rd and 4th digit of the right hand. He notes that a window fell on his fingers 3 days ago and went to [facility] ER, to get medical attention, he had the hand bandaged and he was discharged same day after X-Ray revealed no fractures, as per patient. He notes that he was given 4 pills of tramadol, which has since ran out. He also notes that he was not given antibiotics. He states that he saw his PMD today who sent him to the ED for evaluation. The patient denies any other kind of injuries. Allergies: Penicillins Past surgical history: Left femur surgery Social history: Cigarette use (10 daily). Opiod abuse. No tobacco use PMD - Dr. Raz Walsh <RosanneBradleynina De La Vega - Last Filed: 08/26/16 12:53> - General Chief Complaint: Injury Stated Complaint: FALL Time Seen by Provider: 08/26/16 12:28 Past History - Past Medical History Anemia: No Asthma: Yes Cancer: No Cardiac Disorders: No CVA: No COPD: Yes (NOT TAKING HIS MEDS) CHF: No Dementia: No Diabetes: No GI Disorders: No Disorders: No HTN: Yes (NO MED) Hypercholesterolemia: No Kidney Stones: No Liver Disease: No Suicide Attempt (Hx): No Seizures: No Thyroid Disease: No - Surgical History Abdominal Surgery: No Appendectomy: No Cardiac Surgery: No Cholecystectomy: No Lung Surgery: No Neurologic Surgery: No Orthopedic Surgery: Yes (LEFT FEMUR IN 2006) - Reproductive History Testicular Surgery: No - Immunization History Immunization Up to Date: Yes - Psycho/Social/Smoking Cessation Hx Anxiety: No Suicidal Ideation: No Smoking History: Current every day smoker Have you smoked in the past 12 months: Yes Number of Cigarettes Smoked Daily: 10 Information on smoking cessation initiated: No 'Breaking Loose' booklet given: 06/08/16 Hx Alcohol Use: No Drug/Substance Use Hx: No Substance Use Type: None Hx Substance Use Treatment: Yes ([facility] 2006) <Felicita Salcedo - Last Filed: 08/26/16 12:40> <Bradley Lay - Last Filed: 08/26/16 12:53> - Past Medical History Allergies/Adverse Reactions: Allergies Allergy/AdvReac Type Severity Reaction Status Date / Time Penicillins Allergy Rash Verified 08/26/16 12:29 Home Medications: Ambulatory Orders NK [No Known Home Medication] 08/26/16 Review of Systems - Review of Systems Able to Perform ROS?: Yes Comments:: 08/26/16 12:52 GENERAL/CONSTITUTIONAL: No fever or chills. No weakness. MUSCULOSKELETAL: No joint or muscle swelling or pain. No neck or back pain. SKIN: (+) Right hand, 2nd, 3rd and 4th digit abrasions. NEUROLOGIC: No headache, vertigo, loss of consciousness, or change in strength/ sensation. <Bradley Lay - Last Filed: 08/26/16 12:53> *Physical Exam - Vital Signs Last Vital Signs Temp Pulse Resp BP Pulse Ox 98.2 F 85 20 150/77 98 08/26/16 12:19 08/26/16 12:19 08/26/16 12:19 08/26/16 12:19 08/26/16 12:19 <Felicita Salcedo - Last Filed: 08/26/16 12:40> - Vital Signs Last Vital Signs Temp Pulse Resp BP Pulse Ox 98.2 F 85 20 150/77 98 08/26/16 12:19 08/26/16 12:19 08/26/16 12:19 08/26/16 12:19 08/26/16 12:19 - Physical Exam Comments: 08/26/16 12:52 GENERAL: Awake, alert, and fully oriented, in no acute distress HEAD: No signs of trauma, normocephalic, atraumatic EXTREMITIES: Normal inspection, Normal range of motion, no edema. No clubbing or cyanosis. NEUROLOGICAL: Cranial nerves II through XII grossly intact. Normal speech, normal gait, no focal sensorimotor deficits SKIN: (+) Small abrasion to the flexor surface at the region of the DIP of the index finger, no surrounding erythema or purulent draining. Small abrasion to the flexor surface at the region of the DIP of the ring finger, no surrounding erythema or purulent draining. Steri strips present over the flexor surface near the DIP of the middle finger, with no surrounding erythema and no purulent drainage. <Bradley Lay - Last Filed: 08/26/16 12:53> Medical Decision Making - Medical Decision Making 08/26/16 12:42 66-year-old male with history of chronic bilateral hip pain presents the emergency department (referred to by Dr. Templeton, pain management) for evaluation of injury to his right second third and fourth digits. The patient has small abrasions to the second and fourth digits with no sign of infection. There is a Steri-Strip wound to the middle digit with no signs of infection. The patient requested tramadol for his pain. I have looked the patient up on the [facility] and have note is that the patient had prescription for Tramadol 50 mg filled on July 128 pills, July 8-90 pills and July 26-30 pills. I told the patient that he was in fact not getting tramadol and I would give him ibuprofen at which point he got off of the stretcher and set on leaving. <Felicita Salcedo - Last Filed: 08/26/16 12:40> *DC/Admit/Observation/Transfer - Attestations Physician Attestion: 08/26/16 12:48 I, Dr. Felicita Salcedo, attest that the scribes documentation that appears above has been prepared under my direction and personally reviewed by me in its entirety. I confirmed that the note above accurately reflects all work, treatment, procedures, and medical decision-making performed by me. <Felicita Salcedo - Last Filed: 08/26/16 12:40> - Attestations Scribe Attestion: 08/26/16 12:53 Documentation prepared by Bradley Lay, acting as medical record administrator for Felicita Salcedo MD <Bradley Lay - Last Filed: 08/26/16 12:53> Diagnosis at time of Disposition: Hand pain, right, Eloped - Discharge Dispostion Disposition: ELOPED - Referrals Referrals: Raz Templeton MD [Primary Care Provider] -
== END 2016-08-26 12:45 | disposition home or self-care (01) ==
LOC: JER 12:13
DX: M79.641 Pain in right hand (principal); W23.0XXA Caught, crushed, jammed, or pinched between moving objects, initial encounter; Y93.89 Activity, other specified; Y92.89 Other specified places as the place of occurrence of the external cause
CPT/HCPCS: 99283-25